=== PATIENT | female | born 1935 | race Caucasian/White ===

== ENCOUNTER → 2018-05-02 08:17 | Outpatient (CLI) | payer MEDICARE, SELFPAY ==
[2018-05-01 13:34] VITALS: BMI 26.9
[2018-05-02 09:28] LABS: Absolute Lymphocyte Count 1.47 X10^3/ul (0.83-4.51); Absolute Neutrophil Count 1.7 X10^3/uL (2.0-7.7); Basophil# 0.02 X10^3/uL; Basophil% 0.6 % (0-1); Eosinophil# 0.16 X10^3/uL; Eosinophils% 4.5 % (0-5); Hematocrit 45.8 % (37-47); Hemoglobin 14.5 g/dl (12.0-15.0); Lymphocyte # 1.47 X10^3/ul (4.0); Lymphocyte % 41.2 % (19-41); Mean Corp Hgb Conc 31.7 g/gl (32-36); Mean Corpuscular Hgb 30.7 pg (27.0-32.0); Mean Platelet Vol. 9.1 fl (6.2-12.0); Monocyte# 0.26 X10^3/uL; Monocyte% 7.3 % (0-10); Neutrophil # 1.66 X10^3/uL (2.7-7.7); Neutrophil % 46.4 % (47-70); Platelet Count 218 K/mm3 (150-450); RBC Distribution Width CV 13.8 % (11.6-14.6); RBC Distribution Width SD 49.5 fl (35.1-43.9); Red Blood Count 4.72 M/mm3 (4.2-5.4); White Blood Count 3.6 K/mm3 (4.4-11.0)
[2018-05-02 09:29] LABS: POSITIVE COUNT NO; POSITIVE DIFFERENTIAL NO; POSITIVE MORPHOLOGY NO
[2018-05-02 09:59] LABS: ALB/GLOB Ratio 1.2 RATIO (0.9-2.4); AST(SGOT) 21 U/L (15-37); Alanine Aminotransfer ALT/SGPT 21 U/L (13-56); Albumin, Serum 3.9 g/dL (3.2-5.0); Alkaline Phosphatase 81 U/L (45-117); Anion Gap 2 (5-15); BUN 12 mg/dL (7-18); BUN/Creat Ratio 17.5 RATIO (10-20); Calcium,Total 9.3 mg/dL (8.5-10.1); Chloride 106 mmol/L (98-107); Creatinine, Serum 0.69 mg/dL (0.55-1.02); EST Glomerular Filtration Rate 87 mL/min (>60); Est Glom Filt Rate - Afr Amer 105 mL/min (>60); Globulin 3.3 g/dL (2.2-4.2); Glucose 89 mg/dL (74-106); Potassium 4.3 mmol/L (3.5-5.1); Protein, Total 7.2 g/dL (6.4-8.2); Sodium Level 137 mmol/L (136-145)
== END ==
PROVIDERS: Family Provider Internal Medicine; PCP Internal Medicine; Referring Provider Internal Medicine; Visit Provider Internal Medicine
DX: M85.80 Other specified disorders of bone density and structure, unspecified site (principal)
CPT/HCPCS: 36415; 80053; 85025

== ENCOUNTER → 2018-05-11 14:35 | Outpatient (CLI) | payer MEDICARE, SELFPAY ==
[2018-05-01 13:34] VITALS: BMI 26.9
--- NOTE | 2018-05-11 14:59 | BD_ITS ---
STUDY: DUAL ENERGY X-RAY ABSORPTIOMETRY / DXA REASON FOR EXAM: Female, 83 years old. The patient is postmenopausal. Loss of height. TECHNIQUE: Bone Mineral Density (BMD) measurements of lumbar spine and bilateral hips were obtained. COMPARISON: None. FINDINGS: Lumbar Spine (L1-L4): g/cm2 (1.177) / T-score (0.1) / Z-score (2.0) Findings are suggestive of normal bone density with a low fracture risk. Increased thoracic kyphosis. Left Femur Total: g/cm2 (0.742) / T-score (-2.1) / Z-score (0.0) Left Femoral Neck: g/cm2 (0.812) / T-score (-1.6) / Z-score (0.6) Right Femur Total: g/cm2 (0.684) / T-score (-2.6) / Z-score (-0.5) Right Femoral Neck: g/cm2 (0.782) / T-score (-1.8) / Z-score (0.4) BD/Dexa Bone Density Study IMPRESSION: The patient is considered osteoporotic as outlined below according to World Agustin Organization (WHO) criteria with a high fracture risk. Reference Information: The T-score is the number of standard deviations above or below the standard which is normal for young adults at their peak bone mineral density. The World Health Organization (WHO) interprets the T-scores as follows: Above -1 Normal bone density Between -1 and -2.5 Osteopenia Equal to / or below -2.5 Osteoporosis As a practical clinical guideline, osteopenia may be graded as follows: Mild -1 through -1.5 Moderate -1.6 through -2.0 Severe -2.1 through -2.4 The Z-score is the number of standard deviations above or below age-matched controls. A Z-score of less than -1.5 would be considered abnormal. References: 1. NIH Osteoporosis and Related Bone Diseases http://www.osteo.org 2. International Society for Clinical Densitometry http://www.iscd.org 3. National Osteoporosis Foundation http://www.nof.org Electronically Signed: Percy Lugo, at 15:26 EDT , Service support ,
== END ==
PROVIDERS: Family Provider Internal Medicine; PCP Internal Medicine; Referring Provider Internal Medicine; Visit Provider Internal Medicine
DX: M85.80 Other specified disorders of bone density and structure, unspecified site (principal); Z78.0 Asymptomatic menopausal state
CPT/HCPCS: 77080

== ENCOUNTER 2018-05-13 12:03 | Emergency (ER) | payer MEDICARE, SELFPAY ==
[2018-05-01 13:34] VITALS: BMI 26.9
[2018-05-13 12:04] VITALS: BP 125/69; PULSE 65; RESP 18; TEMP 36.4; O2SAT 98; BMI 27.8
--- NOTE | 2018-05-13 12:30 | ED.VISSUMM ---
- ER Visit Summary Date of Service: 05/13/18 Chief Complaint: Left elbow injury History of Present Illness: The patient is a 83 F who caught her heel in the basement steps and fell down the last couple steps, striking her left elbow. She denies striking her head or loss of consciousness. She was able to get up and ambulate to the phone to call 911. Her only complaint is pain to the left elbow and a contusion to her left hip. Patient denies taking anticoagulants. Physical Examination: Vital signs unremarkable. Patient sitting upright in bed no acute distress. Head neck examination reveals no external sign of trauma. No C-spine tenderness. Heart is regular rate and rhythm. Lungs sounds are clear. Abdomen is soft nontender. Left upper extremity examination reveals focal tenderness of the olecranon process. She has slight decreased range of motion secondary to pain. She has no tenderness at the shoulder or wrist. She has strong distal pulses and normal sensation. Test Results: Left elbow x-rays reveal transverse fracture of the olecranon. Emergency Department Course and Treatment: Patient declined any pain medication while here. X-rays were read discussed with Dr. Looney. Patient is to be splinted in flexion and will follow up in the office. Patient is placed in a long-arm plus sugar tong splint. Following splint application she has good cap refill distally and can wiggle fingers. She will be written for pain medication at home if needed. Treatment Plan: [] Disposition: Discharge Impression: Mechanical fall with left olecranon fracture This note was generated with [employer] dictation software. It may contain incorrect words, spelling, and punctuation that were not noted in review of the chart prior to signing ED Disposition - Plan for ED Patient: Referrals: Abhishek Foy MD [Primary Care Provider] -
--- NOTE | 2018-05-13 12:47 | RAD_ITS ---
STUDY: X-RAY - LEFT ELBOW REASON FOR EXAM: Female, 83 years old. Fall, pain TECHNIQUE: 3 view(s) of the elbow. COMPARISON: None. FINDINGS: Transverse fracture of the olecranon is identified with approximately 17 mm of displacement. There is moderate degree of comminution/fragmentation. Normal radiocapitellar and ulnotrochlear articulations. Posterior soft tissue swelling noted. RAD/Elbow min 3 Views IMPRESSION: Posterior ulna/olecranon fracture, as above. Electronically Signed: Hong Salazar MD at 13:01 EDT , Service support ,
--- NOTE | 2018-05-13 13:58 | DCINST.ED_ITS ---
ED Disposition - Plan for ED Patient: Disposition: Home or Assisted Living Instructions: ED Fx Elbow Prescriptions: Hydrocodone Bitart/Apap 5-325 [Pattison 5MG-325MG] 1 tablet PO Q6H PRN PRN 3 Days #10 tablet PRN Reason: Pain Referrals: Holger Looney DO [STAFF PHYSICIAN] - 5-7 Days
[2018-05-13 15:15] VITALS: BP 123/72; PULSE 70; RESP 18; O2SAT 96
--- NOTE | 2018-05-14 14:40 | CM.ED ---
SOCIAL WORK NOTE REFERRAL FROM BEDSIDE RN AND PHYSICIAN FROM 05/13. PT IS AN 83 Y/O WOMAN THAT LIVES ALONE AND WAS FOUND TO HAVE A BROKEN L ELBOW WHILE IN THE ED YESTERDAY. PLACED CALL TO PT AND EDUCATED TO SERVICES. AT THIS TIME THE PT THINKS SHE CAN MANAGE AT HOME WITH HHC. STATES THAT SHE LONG-TERM CARE INSURANCE AND IT COVERS HHC. INFORM THAT THIS [employer] YACHT IS NOT FAMILIAR ENOUGH WITH LONG-TERM CARE INSURANCE TO KNOW THE COVERAGE, BUT THAT [facility] CAN RUN HER INSURANCE AND CONTACT HER WITH WHAT IS COVERED AND WHAT THE APPROXIMATE COST OF SERVICES WOULD BE. UNDERSTANDING EXPRESSED AND PT AGREEABLE TO [facility]. PRIMARY INSURANCE: [employer] LONG-TERM CARE INSURANCE: [employer] LIFE INSURANCE POLICY # - [id number] PHONE NUMBER - [phone] REFERRAL FOR HHC FAXED AND LEFT VM FOR HAIDER WITH HHC TO F/U WITH PT REGARDING PAYMENT COVERAGE. Lisa Rose, SUPPLY CHAIN BUSINESS ANALYST, METAL DOOR ASSEMBLER
== END 2018-05-13 15:16 | disposition home or self-care (01) ==
PROVIDERS: Emergency Provider Emergency Medicine; Family Provider Internal Medicine; PCP Internal Medicine
DX: S52.022A Displaced fracture of olecranon process without intraarticular extension of left ulna, initial encounter for closed fracture (principal); W10.8XXA Fall (on) (from) other stairs and steps, initial encounter; Y93.9 Activity, unspecified; Y92.9 Unspecified place or not applicable
CPT/HCPCS: 29105; 73080; 99284

== ENCOUNTER → 2019-05-08 13:44 | Outpatient (CLI) | payer MEDICARE, SELFPAY ==
[2019-05-08 13:01] VITALS: BMI 27.8
[2019-05-08 15:07] LABS: Absolute Lymphocyte Count 1.24 X10^3/uL (0.83-4.51); Absolute Neutrophil Count 2.2 X10^3/uL (2.0-7.7); Basophil# 0.03 X10^3/uL; Basophil% 0.8 % (0-1); Eosinophil# 0.15 X10^3/uL; Eosinophils% 3.8 % (0-5); Hematocrit 43.3 % (37-47); Hemoglobin 14.6 g/dL (12.0-15.0); Lymphocyte # 1.24 X10^3/ul (4.0); Mean Corp Hgb Conc 33.7 g/dL (32-36); Mean Corpuscular Hgb 32.4 pg (27.0-32.0); Mean Corpuscular Volume 96.2 fL (81-99); NRBC Flagged by Analyzer 0 % (0-5); Neutrophil # 2.17 X10^3/uL (2.7-7.7); Neutrophil % 54.1 % (47-70); Platelet Count 245 K/mm3 (150-450); RBC Distribution Width CV 13.3 % (11.6-14.6); RBC Distribution Width SD 47.7 fl (35.1-43.9)
[2019-05-08 15:18] LABS: ALB/GLOB Ratio 1.1 RATIO (0.9-2.4); AST(SGOT) 18 U/L (15-37); Alanine Aminotransfer ALT/SGPT 24 U/L (13-56); Albumin, Serum 3.6 g/dL (3.2-5.0); Alkaline Phosphatase 63 U/L (45-117); Anion Gap 8 (5-15); BUN 10 mg/dL (7-18); BUN/Creat Ratio 15.1 RATIO (10-20); Calcium,Total 9.7 mg/dL (8.5-10.1); Chloride 101 mmol/L (98-107); Creatinine, Serum 0.66 mg/dL (0.55-1.02); EST Glomerular Filtration Rate 91 mL/min (>60); Est Glom Filt Rate - Afr Amer 110 mL/min (>60); Globulin 3.3 g/dL (2.2-4.2); Glucose 104 mg/dL (74-106); Potassium 4.1 mmol/L (3.5-5.1); Protein, Total 6.9 g/dL (6.4-8.2); Sodium Level 135 mmol/L (136-145)
[2019-05-08 15:20] LABS: Vitamin D,25 Hydroxy 46.4 ng/mL
== END ==
PROVIDERS: PCP Internal Medicine; Visit Provider Internal Medicine
DX: S42.409A Unspecified fracture of lower end of unspecified humerus, initial encounter for closed fracture (principal); M81.0 Age-related osteoporosis without current pathological fracture
CPT/HCPCS: 36415; 80053; 82306; 85025

== ENCOUNTER → 2019-09-04 14:57 | Outpatient (CLI) | payer MEDICARE, SELFPAY ==
[2019-09-04 14:53] VITALS: BMI 27.8
--- NOTE | 2019-09-04 14:58 | RAD_ITS ---
STUDY: X-RAY - RIGHT WRIST REASON FOR EXAM: Pain. TECHNIQUE: 3 view(s) of the wrist were obtained. COMPARISON: None. FINDINGS: There is osteopenia. Normal visualized distal radius and ulna. Normal radiocarpal articulation. There is joint space narrowing of the distal radioulnar articulation. There is a cyst in the mid scaphoid. Otherwise, unremarkable carpal bones. Normal carpal articulations. Normal carpometacarpal articulation of the thumb. Normal second through fifth carpometacarpal articulations. Normal visualized metacarpal bones. There is chondrocalcinosis in the triangular fibrocartilage. 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 Electronically Signed: Abdoulaye Heaton MD at 8:25 EDT Tel , Service support ,
== END ==
PROVIDERS: PCP Internal Medicine; Referring Provider Orthopaedic Surgery; Visit Provider Orthopaedic Surgery
DX: M25.531 Pain in right wrist (principal)
CPT/HCPCS: 73110

== ENCOUNTER 2019-09-28 08:58 | Day surgery (SDC) | payer MEDICARE, SELFPAY ==
--- NOTE | 2019-09-04 03:41 | HP_ITS ---
I have re-examined the patient. There are no clinical changes since date of exam. Intake Vital Signs 09/04/19 BMI 27.8 Intake Visit Reasons: RIGHT WRIST Chief Complaint: right wrist Accompanied by: self Is patient in pain?: Yes Pain scale (1-10): 7 Allergies No Known Allergies Allergy (Verified 05/08/19 12:58) Medications calcium carbonate 600 mg(1,500 mg)-vitamin D3 800 unit chewable tablet 1 tab PO DAILY tab 05/01/18 [History Confirmed 09/04/19] multivitamin 1 cap PO DAILY 05/01/18 [History Confirmed 09/04/19] alendronate 70 mg tablet 70 mg PO QWEEK #14 tab 04/11/19 [Rx Confirmed 09/04/19] PFSH Social History (Updated 09/04/19 @ 15:[address] Mary Reza, ) Smoking Status: Never smoker Tobacco: How many years used: 15 alcohol intake: current alcohol intake frequency: holidays/special occasions only Alcohol type: wine substance use type: does not use what type of physical activity do you participate in: aerobics, weight training frequency: 1-2 times per week HPI RIGHT WRIST: Surgical H&P: Yes Details: Parts of this documentation were recorded by a scribe, this documentation accurately reflects the service provided and the decisions made by me, Dr. Mary Reza, 09/04/19 [id number]. STERLING VALDES is a 84 year old F NEW patient here today for right wrist. Referred by Dr. Foy for positive right upper extremity EMG. States that her pain keeps her up at night. Her EMG showed Moderate to severe carpal tunnel on the right and mild on the left side. States she has numbness and tingling of the thumb index and middle finger. She has been trying night splinting for 3 years now which has been helpful. Denies any x-rays. Denies any carpal tunnel injections. She does read a lot and this affects the way she olds the book. ROS Const Reports weakness Musc Reports joint pain, Denies joint swelling, Reports numbness, Reports radiating pain into limb, Reports stiffness, Reports tingling Skin/Breast Denies redness, Denies lesions, Denies itching, Denies rash, Denies skin swelling Neuro Yes numbness, Yes tingling, Yes weakness Ortho Exam Right Wrist/Hand Skin/Wound: No Swelling, No Ecchymosis, Yes capillary refill normal Right Wrist: Yes ROM-Extension 0-60, ROM-Flexion 0-80, ROM-Pronation 0-80, ROM- Supination 0-90 and Thenar Atrophy Motor: EPL: 5, FDP-2: 4, 1st Dorsal Interosseous: 5, APB: 4 Sensation: Radial: I, Ulnar: I, Median: D Left Wrist/Hand Skin/Wound: No Swelling, No Ecchymosis, No erythema Left Wrist: Yes ROM-Extension 0-60, Yes ROM-Flexion 0-80, Yes ROM-Pronation 0-80 and Yes ROM-Supination 0-90; no Thenar Atrophy Motor: EPL: 5, FDP-2: 5, 1st Dorsal Interosseous: 5, APB: 5 Sensation: Radial: I, Ulnar: I, Median: D Spine SPINE TESTING CERVICAL THORACIC LUMBAR Musculoskeletal Strength 0=absent - 5=normal R First Dorsal Interossei (C8): 4, L First Dorsal Interossei (C8): 4 Assessment & Plan Problems 1. Bilateral carpal tunnel syndrome G56.03 Plan Obtained X-rays of patient's right wrist. Personally reviewed x-rays. There is no obvious fracture, dislocation, or lucency noted. Personally reviewed patients EMG of the BL upper extremities. Patient educated that she has moderate to severe carpal tunnel syndrome of the right wrist and mild carpal tunnel of the left wrist. Treatment options include do nothing or night bracing or carpal tunnel injections or carpal tunnel release. Recommended right carpal tunnel release of the right wrist and a steroid injection of the left carpal tunnel injection. Educated that she will be in a splint/dressing for 2 weeks post op then she can progress as tolerated. Reviewed the pre-operative plans with the patient. Risks and benefits of the procedure were fully explained, including but not limited to infection, neurovascular injury, continued pain, arthritis, stiffness, need for further surgery, re-injury, DVT, PE, general risks of anesthesia, and loss of limb or life. The patient understands all the risks and does wish to proceed with written consent. Follow up 2 weeks post op or sooner if pain, swelling, numbness or associated symptoms, or concerns develop. All questions answered. Patient in agreement of plan. Orders Orders: Wrist min 3 Views Today M25.531 We discussed the current risk associated COVID-19. While it is understood that there is a community spread of COVID 19 the risk of clarissa COVID-19 while at [facility] is very low, however, the risk cannot be completely mitigated because of the community spread of the disease. We discussed in detail the risk of exposure to and or potential harm posed by the COVID-19 virus with having a surgery/procedure at this time versus the risk of delaying the surgery/procedure. Is not possible to know either the risk of delaying the surgery procedure or chance of getting an infection with perfect accuracy, but a joint decision was made to proceed at this time with a schedule surgery/procedure as indicated on the consent form. Patient was notified that we will need to comply with any screening or testing [facility] wishes to perform or that surgery may be delayed for any positive results. Coding Level of Care Code 85986 Diagnoses Bilateral carpal tunnel syndrome G56.03 COVID (Procedure Consent) Procedure Criteria Procedure Criteria: Yes Elective The surgeon/proceduralist and patient have discussed in detail the risk of exposure to and/or potential harm posed by the COVID-19 virus with having a surgery/procedure at this time versus the risk of? delaying the surgery/procedure. It is not possible to know either the risk of delaying the surgery or procedure or chance of getting an infection with perfect accuracy, but a joint decision was made between the patient and the surgeon/proceduralist ?to proceed at this time with the scheduled surgery/procedure as indicated on the consent form. 09/04/19 4060 <Electronically signed by Mary lockwood DO> Date _ Mary Reza DO
[2019-09-04 14:53] VITALS: BMI 27.8
[2019-09-28] VITALS (7 sets, daily range): BP systolic 107–126; BP diastolic 62–86; PULSE 68–74; RESP 14–16; TEMP 35.9–36.6; O2SAT 94–100; BMI 27.6
[2019-09-28] MEDS: Lactated Ringers 1,000 ML 100 ML IV (09:59)
--- NOTE | 2019-09-28 10:59 | DCINST_ITS ---
Discharge Diet: No Restrictions - Leave dressing on until seen in postop clinic in 10-14 days for suture removal, keep dressing clean, dry, intact; change dressing if gets wet/dirty, call with concerns Discharge Activity: May Not Drive May shower in (days): 1 Ice area for (Minutes): 20 - Every hour while awake. Weight Bearing Status: Weight bearing as tolerated Keep extremity elevated above heart level: Operative Extremity Call your doctor if your incision/area has: Continuous Slow Oozing, Sudden Increased Bleeding, Increased Pain/ Swelling, Increased Redness, Foul Smelling Discharge Call your doctor if you observe: Fever of 101 or Higher, Coldness, Increased Pain, Numbness or Tingling, Change in Color, Calf discomfort Allergies/Adverse Reactions: Allergies No Known Allergies Allergy (Verified 09/19/19 11:06) Medications to take at Discharge calcium carbonate 600 mg(1,500 mg)-vitamin D3 800 unit chewable tablet 1 tab PO BID tab 05/01/18 multivitamin 1 cap PO DAILY 05/01/18 alendronate 70 mg tablet 70 mg PO QWEEK #14 tab 04/11/19 Cholecalciferol (Vitamin D3) [Vitamin D3] 25 mcg PO DAILY 09/19/19 Acetaminophen/Codeine #3 [Tylenol #3 Tablet] 1 - 2 tablet PO Q6H PRN PRN #30 tablet 09/28/19 The following prescriptions were given: Acetaminophen/Codeine #3 [Tylenol #3 Tablet] 1 - 2 tablet PO Q6H PRN PRN #30 tablet PRN Reason: Pain Transmission Status: Sent to [facility]30 Primary Care Physician: Abhishek Foy MD [Primary Care Provider] - Test Results: Test results from this visit will be discussed in further detail at your follow- up appointment, if applicable. Please Follow Up With: Mary Reza, DO - [phone]
--- NOTE | 2019-09-28 10:59 | PCM.OPRPT ---
Report of Operation Date of Procedure: 09/28/19 Pre-Operative Diagnosis: bilateral carpal tunnel syndrome Post-Operative Diagnosis: same Surgery/Procedure Performed:: right carpal tunnel release, left carpal tunnel injection Type of Anesthesia:: Jina Cross Anesthesiologist: Federico Coelho Estimated Blood Loss (mL): min Fluids Replaced: 400cc Description of Procedure: Preoperative note Patient is a 84 year old patient with nerve conduction study confirming bilateral carpal tunnel syndrome. Patient failed conservative treatment for her carpal tunnel elected proceed with right carpal tunnel release left carpal tunnel injection. Risks benefits and alternatives surgery discussed with patient. Risks including but not limited to blood loss, blood clot, infection, neurovascular injury, failure procedure, loss of life and loss of limb. Patient is aware like proceed with right carpal tunnel release. left carpal tunnel injection. Operative note Patient seen and examined preoperative holding area. right hand was marked. History and physical and consent reviewed. Patient was brought to the operating room placed supine on the operating table. Sign in, anesthesia, antibiotics were administered. right upper extremity was prepped and draped after Jina block was initiated. All bony prominences well-padded SCDs placed on bilateral lower extremities. We marked out our incisions for our carpal tunnel release at the intersection of Rakel's line in the fourth ray flexed. We extended about a centimeter and a half. Timeout was performed. We then checked ensure that the [place] block was working with pickups which it was not so we performed a local block of 10cc 1% lidocaine. We then used a 15 blade to make a skin incision. We then dissected down tenotomy syllable of the transverse carpal ligament. We then used a new 15 blade cut through the transverse carpal ligament down to the level of the median nerve. We then further released the median nerve the combination of the 15 blade and tenotomies. The nerve was grayish in color and adherent to the transverse carpal ligament volarly. We released the transverse carpal ligament distally to the fat pad and then proximally under standard technique. We then palpated to ensure that we released all of the transverse carpal ligament which we did. We irrigated the incision with copious amounts of sterile saline. All bleeders were coagulated. The incision was closed with interrupted 4-0 nylon stitches. Tourniquet was deflated for total working time of 9 minutes. We then moved to the left side/carpal tunnel. under sterile technique, the left wrist/carpal tunnel was injected with 1/2cc kenalog and 1cc bupivicaine. Patient tolerated procedure well there were no complications. Patient transferred to recovery room in stable condition. Postoperative note Hospital pharmacy has prescription Leave dressing clean dry and intact Follow-up in 2 weeks Call with concerns This note was generated with [employer] dictation software. It may contain incorrect words, spelling, and punctuation that were not noted in checking the note before signing
[2019-09-28] MEDS: Cefazolin 2 GM in 0.9% Normal Saline 100 ML IV (11:42)
[2019-09-28] MEDS: Mupirocin Ointment 22gm Tube 1 APPLIC (12:07)
[2019-09-28] MEDS: Triamcinolone Acetonide 40 MG/ML Vial (12:10)
[2019-09-28] MEDS: Bupivacaine 0.25% 30 ML Vial (12:10)
== END 2019-09-28 13:40 | disposition home or self-care (01) ==
LOC: SDC 08:59 → AC 09:00
PROVIDERS: Anesthesiology; PCP Internal Medicine; Referring Provider Orthopaedic Surgery; Visit Provider Orthopaedic Surgery
PROC: (CPT 64721; principal; 2019-09-28 10:15)
DX: G56.03 Carpal tunnel syndrome, bilateral upper limbs (principal); Z11.59 Encounter for screening for other viral diseases; Z87.891 Personal history of nicotine dependence
CPT/HCPCS: 20526; 64721; 87635; 94799; J7120; A4216; U0003

== ENCOUNTER → 2020-05-02 10:36 | Outpatient (CLI) | payer MEDICARE, SELFPAY ==
[2020-05-02 09:56] VITALS: BMI 28.7
[2020-05-02 12:28] LABS: Absolute Lymphocyte Count 1.28 X10^3/uL (0.83-4.51); Absolute Neutrophil Count 2.3 X10^3/uL (2.0-7.7); Basophil# 0.04 X10^3/uL; Eosinophil# 0.14 X10^3/uL; Eosinophils% 3.3 % (0-5); Hematocrit 44.5 % (37-47); Hemoglobin 14.1 g/dL (12.0-15.0); Lymphocyte # 1.28 X10^3/ul (4.0); Lymphocyte % 30.4 % (19-41); Mean Corp Hgb Conc 31.7 g/dL (32-36); Mean Corpuscular Hgb 30.9 pg (27.0-32.0); Mean Corpuscular Volume 97.4 fL (81-99); Mean Platelet Vol. 9.3 fl (6.2-12.0); Monocyte# 0.42 X10^3/uL; NRBC Flagged by Analyzer 0 % (0-5); Neutrophil # 2.32 X10^3/uL (2.7-7.7); Neutrophil % 55.1 % (47-70); Platelet Count 228 K/mm3 (150-450); RBC Distribution Width CV 13.2 % (11.6-14.6); Red Blood Count 4.57 M/mm3 (4.2-5.4); White Blood Count 4.2 K/mm3 (4.4-11.0)
[2020-05-02 12:38] LABS: ALB/GLOB Ratio 1.2 RATIO (0.9-2.4); AST(SGOT) 18 U/L (15-37); Alanine Aminotransfer ALT/SGPT 23 U/L (13-56); Albumin, Serum 3.8 g/dL (3.2-5.0); Alkaline Phosphatase 58 U/L (45-117); Anion Gap 3 (5-15); BUN 11 mg/dL (7-18); BUN/Creat Ratio 14.4 RATIO (10-20); Chloride 101 mmol/L (98-107); Creatinine, Serum 0.76 mg/dL (0.55-1.02); EST Glomerular Filtration Rate 77 mL/min (>60); Est Glom Filt Rate - Afr Amer 93 mL/min (>60); Globulin 3.3 g/dL (2.2-4.2); Glucose 91 mg/dL (74-106); Potassium 4.6 mmol/L (3.5-5.1); Protein, Total 7.1 g/dL (6.4-8.2); Sodium Level 135 mmol/L (136-145)
[2020-05-02 12:41] LABS: Vitamin D,25 Hydroxy 41.8 ng/mL
== END ==
PROVIDERS: PCP Internal Medicine; Referring Provider Internal Medicine; Visit Provider Internal Medicine
DX: S42.409A Unspecified fracture of lower end of unspecified humerus, initial encounter for closed fracture (principal); M81.0 Age-related osteoporosis without current pathological fracture
CPT/HCPCS: 36415; 80053; 82306; 85025

== ENCOUNTER 2021-05-04 10:42 | Outpatient (CLI) | payer MEDICARE, SELFPAY ==
[2021-05-04 12:14] LABS: Absolute Lymphocyte Count 1.17 X10^3/uL (0.83-4.51); Absolute Neutrophil Count 2.5 X10^3/uL (2.0-7.7); Basophil# 0.03 X10^3/uL; Basophil% 0.7 % (0-1); Eosinophil# 0.16 X10^3/uL; Eosinophils% 3.8 % (0-5); Hematocrit 41.8 % (37-47); Hemoglobin 13.6 g/dL (12.0-15.0); Lymphocyte # 1.17 X10^3/ul (0.83-4.51); Lymphocyte % 27.8 % (19-41); Mean Corp Hgb Conc 32.5 g/dL (32-36); Mean Corpuscular Hgb 31.3 pg (27.0-32.0); Mean Corpuscular Volume 96.1 fL (81-99); Mean Platelet Vol. 9.3 fl (6.2-12.0); Monocyte# 0.33 X10^3/uL; Monocyte% 7.8 % (0-10); NRBC Flagged by Analyzer 0 % (0-5); Neutrophil % 59.4 % (47-70); Platelet Count 207 K/mm3 (150-450); RBC Distribution Width CV 13.5 % (11.6-14.6); RBC Distribution Width SD 48.4 fl (35.1-43.9); Red Blood Count 4.35 M/mm3 (4.2-5.4); White Blood Count 4.2 K/mm3 (4.4-11.0)
[2021-05-04 12:20] LABS: ALB/GLOB Ratio 1.3 RATIO (0.9-2.4); AST(SGOT) 19 U/L (15-37); Alanine Aminotransfer ALT/SGPT 23 U/L (13-56); Albumin, Serum 3.8 g/dL (3.2-5.0); Alkaline Phosphatase 55 U/L (45-117); Anion Gap 4 (5-15); BUN 13 mg/dL (7-18); BUN/Creat Ratio 17.8 RATIO (10-20); Calcium,Total 9.6 mg/dL (8.5-10.1); Chloride 102 mmol/L (98-107); Creatinine, Serum 0.73 mg/dL (0.55-1.02); EST Glomerular Filtration Rate 81 mL/min (>60); Est Glom Filt Rate - Afr Amer 97 mL/min (>60); Glucose 141 mg/dL (74-106); Potassium 4.6 mmol/L (3.5-5.1); Protein, Total 6.8 g/dL (6.4-8.2); Sodium Level 136 mmol/L (136-145)
[2021-05-04 12:42] LABS: Vitamin D,25 Hydroxy 45.8 ng/mL
[2021-05-04 14:43] LABS: Hemoglobin A1c 5.9 % (3.8-5.6)
== END 2021-05-04 23:59 | disposition home or self-care (01) ==
LOC: BIMLAB 10:43
PROVIDERS: PCP Internal Medicine; Referring Provider Internal Medicine; Visit Provider Internal Medicine
DX: G56.00 Carpal tunnel syndrome, unspecified upper limb (principal); M81.0 Age-related osteoporosis without current pathological fracture; R73.9 Hyperglycemia, unspecified
CPT/HCPCS: 36415; 80053; 82306; 83036; 85025

== ENCOUNTER 2021-05-07 14:02 | Outpatient (CLI) | payer MEDICARE, SELFPAY ==
--- NOTE | 2021-05-07 14:10 | BD_ITS ---
STUDY: DUAL ENERGY X-RAY ABSORPTIOMETRY / DXA REASON FOR EXAM: Female, 86 years old. Osteoporosis TECHNIQUE: Bone Mineral Density (BMD) measurements of lumbar spine and bilateral hips were obtained. COMPARISON: Comparison is made with prior study dated 05/11/2018. FINDINGS: Lumbar Spine (L1-L4): g/cm2 (1.238) / T-score (1.7) / Z-score (4.6) Findings are suggestive of normal bone density with a low fracture risk. Left Femur Total: g/cm2 (0.719) / T-score (-1.8) / Z-score (0.5) Left Femoral Neck: g/cm2 (0.686) / T-score (-1.5) / Z-score (1.1) Right Femur Total: g/cm2 (0.727) / T-score (-1.8) / Z-score (0.6) Right Femoral Neck: g/cm2 (0.774) / T-score (-0.7) / Z-score (1.8) The T-Scores on the most recent prior examination were: Lumbar Spine (L1-L4): There has been improvement of bone density since the previous examination. Left Femur Total: which represents an improvement of 5.2%. Right Femur Total: which represents an improvement of 15.9%. BD/Dexa Bone Density Study IMPRESSION: The patient is considered osteopenic as outlined below according to World Agustin Organization (WHO) criteria with a moderate fracture risk. There has been improvement of bone density since the previous examination. Reference Information: The T-score is the number of standard deviations above or below the standard which is normal for young adults at their peak bone mineral density. The World Health Organization (WHO) interprets the T-scores as follows: Above -1 Normal bone density Between -1 and -2.5 Osteopenia Equal to / or below -2.5 Osteoporosis As a practical clinical guideline, osteopenia may be graded as follows: Mild -1 through -1.5 Moderate -1.6 through -2.0 Severe -2.1 through -2.4 The Z-score is the number of standard deviations above or below age-matched controls. A Z-score of less than -1.5 would be considered abnormal. References: 1. NIH Osteoporosis and Related Bone Diseases www osteo.org 2. International Society for Clinical Densitometry www iscd.org 3. National Osteoporosis Foundation www nof.org Electronically Signed: Percy Lugo MD at 8:53 EDT ,
== END 2021-05-07 23:59 | disposition home or self-care (01) ==
LOC: OPBD 14:03
PROVIDERS: PCP Internal Medicine; Visit Provider Internal Medicine
DX: M81.0 Age-related osteoporosis without current pathological fracture (principal)
CPT/HCPCS: 77080

== ENCOUNTER → 2022-05-03 | Outpatient (CLI) | payer MEDICARE, SELFPAY ==
[2022-05-03 12:05] LABS: Absolute Lymphocyte Count 1.07 X10^3/uL (0.83-4.51); Absolute Neutrophil Count 2.6 X10^3/uL (2.0-7.7); Basophil# 0.04 X10^3/uL; Eosinophils% 2.4 % (0-5); Hematocrit 44.7 % (37-47); Hemoglobin 14.2 g/dL (12.0-15.0); Lymphocyte # 1.07 X10^3/ul (0.83-4.51); Mean Corp Hgb Conc 31.8 g/dL (32-36); Mean Corpuscular Hgb 31.2 pg (27.0-32.0); Mean Corpuscular Volume 98.2 fL (81-99); Mean Platelet Vol. 9.4 fl (6.2-12.0); Monocyte# 0.35 X10^3/uL; Monocyte% 8.5 % (0-10); NRBC Flagged by Analyzer 0 % (0-5); Neutrophil # 2.55 X10^3/uL (2.7-7.7); Neutrophil % 61.9 % (47-70); Platelet Count 218 K/mm3 (150-450); RBC Distribution Width CV 13.9 % (11.6-14.6); RBC Distribution Width SD 51.2 fl (35.1-43.9); Red Blood Count 4.55 M/mm3 (4.2-5.4); White Blood Count 4.1 K/mm3 (4.4-11.0)
[2022-05-03 12:16] LABS: Vitamin D,25 Hydroxy 50.2 ng/mL
[2022-05-03 12:26] LABS: ALB/GLOB Ratio 1.1 RATIO (0.9-2.4); AST(SGOT) 17 U/L (15-37); Alanine Aminotransfer ALT/SGPT 24 U/L (13-56); Albumin, Serum 3.6 g/dL (3.2-5.0); Alkaline Phosphatase 54 U/L (45-117); Anion Gap 6 (5-15); BUN 11 mg/dL (7-18); Calcium,Total 10.2 mg/dL (8.5-10.1); Chloride 101 mmol/L (98-107); Creatinine, Serum 0.73 mg/dL (0.55-1.02); EST Glomerular Filtration Rate 80 mL/min (>60); Est Glom Filt Rate - Afr Amer 97 mL/min (>60); Globulin 3.2 g/dL (2.2-4.2); Glucose 111 mg/dL (74-106); Protein, Total 6.8 g/dL (6.4-8.2); Sodium Level 137 mmol/L (136-145)
== END | disposition home or self-care (01) ==
LOC: BIMLAB 09:28
PROVIDERS: PCP Internal Medicine; Referring Provider Internal Medicine; Visit Provider Internal Medicine
DX: S42.409A Unspecified fracture of lower end of unspecified humerus, initial encounter for closed fracture (principal); M81.0 Age-related osteoporosis without current pathological fracture
CPT/HCPCS: 36415; 80053; 82306; 85025

== ENCOUNTER 2022-08-31 13:30 | Outpatient (RCR) | payer MEDICARE, SELFPAY ==
--- NOTE | 2022-08-09 14:57 | HP.PTEVAL_ITS ---
Patient's Visit Information STERLING VALDES is a 87 year old F referred to Physical Therapy by KELSI Espinoza with a diagnosis of SI joint dysfunction L side, LB strain.. Date of Evaluation: 08/09/22 Physical Therapist: Surendra Cota, DPT, OCS, CSCS - Visit Plan Frequency: 2x /Week Duration: 4-6 Weeks Plan: 2x/week for 4-6 weeks starting in pool for ec balance, LB ROM, general strength adn progression of HEP. - Subjective I've got some. Spent 10 days in [place] and 7 days [place] in last month. Endo of June before [place], she lost her balance and fell and got up and went to [facility]. X rays of L hip as she fell on her behind. Was really sore the next day in L hip. Got prednisone 5 day and tylenol and got along [place] in [place]. used cane for stability. Hurting and stiff upon arising every morning. Went to [place] after 5 more days of prednisone to get through [place] adn did well there despite a lot of walking. used shuttle quite a bit. Soreness in L hip is the biggest problem. Sent to [place] [facility] and has scoliosis and not sciatica and OA in body. Needs PT. Currently life is slower because of not sure when shooting pain in L hip will come on. Uses cane and it is a God send,. No regular exercises prior to fall. Not employed. Hobbies are reading and travelling. Very involved in restoration. - Pain L hip Pain Intensity (Out of 10): 0 Pain Intensity Range: 0, 2 - Objective Walks with cane I. can walk without cane but hurts more L hip and SI area. trasnfers slow but I chair and bed. steps I with one rail. reflexes 1/3 patella and achilles. Sensation WNL LE to gross light touch. strength in hips is 3+ abd and flexion and ext, knee flex and ext 4- and ankles 4- B. Some tender ness L SI area. AROM hip rotation R hip 4 ir and 40 er, L hip 7 ir and 45 er. flexion 90 B. quads max tight B, HS min tight. knee and ankle AROM WFL but tightness in gastroc. Confidence with balance is poor but can stand with ec, feels poor. - Balance/Special Test Scores Functional Gait Assessment Score: 22 % Disability: 26.6700 Oswestry Low Back Score: 17 - Goals Goal 1:: I appropr HEP for back ROm, general strength and quad stretching and balance ec. Goal Time Frame: 4-6 Weeks Goal 2:: No pain with ambulation Goal Time Frame: 4-6 Weeks Goal 3:: Pt feel 75% better overall. Goal Time Frame: 4-6 Weeks Goal 4:: oswestry score 10 or less. Goal Time Frame: 4-6 Weeks - Rehabilitation Potential Physical Therapy Diagnosis: imbalance and LBP sedentary. Rehabilitation Potential: Good - Anticipated Interventions Patient/Client Instruction: Educate patient on: Condition, Plan of Care For the Purpose of:: To increase tolerance to activity/condition/position, To improve ability of physical actions for home/community/work/leisure, To improve gait and locomotor functions Therapeutic Exercise to Include: Strength training, Postural training, Fl exibilty training, In an aquatic setting, Dynamic Lumbar Stabilization For the Purpose of:: To decrease pain, To increase ROM, To improve nutrient delivery to tissue, To improve muscle performance and motor function, To increase tolerance to activity/condition/position, To improve ability of physical actions for home/community/work/leisure, To improve gait and locomotor functions Thank you for the opportunity to evaluate your patient. For Medicare and Medicare HMO plans, please review the plan of care and approve it. It will need to be FAXED BACK to us at [phone] for Medicare purposes. For Medicare only, by signing this I certify the plan of care. Please let me know if there are questions or concerns regarding this plan of care. Physician Signature: Date:
--- NOTE | 2022-08-31 13:53 | HP.PTDCSUM_ITS ---
Discharge Summary D/C summary: It has been my pleasure to treat STERLING VALDES referred by KELSI Espinoza, with the diagnosis of SI joint dysfunction L side, LB strain. for a total of 8 visit(s). Discharge Date: 08/31/22 Please see the following information for a summary of their discharge status. Subjective Subjective: Not a lot better overall. Pain comes back after out of the water. I would be in trouble without pain meds. Agony when she gets up still. L poste rior hip hurts with WB consistently. Pain meds really help. Had bad pain this am upon awakening. 09/23 . Not walking like she would for fitness. Using cane to get around. Sleep is not a problem. Nothing scheduled. Pain L hip: Pain Intensity (Out of 10): 0 Overall Improvement % Improvement: 0 Objective Objective/Function: Walks with cane appropriately today and short steps but no antalgia until cane taken away. She says it is worse when she is not on pain meds. PROM L hip is WFL although pt holds it very tight and has hard time relaxing, no pain at end ranges today . Strength is 4 in ankles, 4 in knees and 4- in hips without much pain. Gets 2 twinges of bad pain walking today that linger in posterior L hip, this is frustrating for her. Overall not feeling any better and wants to check with doctor for next step as she feels something else is going on in her hip. Goals Goal 1:: I appropr HEP for back ROm, general strength and quad stretching and balance ec. Goal Progress: noncompliant Goal 2:: No pain with ambulation Goal Progress: Not Progressing Goal 3:: Pt feel 75% better overall. Goal Progress: Not Progressing Goal 4:: oswestry score 10 or less. Goal Progress: Not Progressing Plan Plan: d/c, pt to schedule with doctor for next medical step D/C Information Discharge Comments: Pt to schedule with doctor office for next step due to lack of improvement. d/c sentence: If there are questions or concerns regarding this patient's physical therapy, please feel free to call me at [phone]. Thank you for the referral of this patient. Sincerely, Surendra Cota, DPT, OCS, CSCS Balance/Gait/Functional tests Balance/Special Test Scores Functional Gait Assessment Score: 22 % Disability: 26.6700 Oswestry Low Back Score: 27
== END 2022-08-31 19:00 | disposition home or self-care (01) ==
LOC: PT 13:30
PROVIDERS: PCP Internal Medicine; Referring Provider Physician Assistant; Visit Provider Physician Assistant
DX: M53.3 Sacrococcygeal disorders, not elsewhere classified (principal); S39.012D Strain of muscle, fascia and tendon of lower back, subsequent encounter
CPT/HCPCS: 97113; 97161; 97164

== ENCOUNTER → 2022-10-02 | Outpatient (CLI) | payer MEDICARE, SELFPAY ==
--- NOTE | 2022-10-02 08:01 | MRI_ITS ---
EXAM: MR PELVIS WITHOUT INTRAVENOUS CONTRAST CLINICAL INDICATION: back pain, hip pain, LT side worse, fell 07/07/22, att si joints TECHNIQUE: Multiplanar and multisequence MR images of the pelvis without intravenous contrast. COMPARISON: Left hip and pelvis x-ray 09/13/2022. FINDINGS: APPENDIX: No evidence of acute appendicitis. INTRAPERITONEAL SPACE: Unremarkable. No ascites or other fluid collection. BLADDER: Unremarkable. OVARIES: Unremarkable as visualized. No mass or complex cyst. UTERUS/CERVIX: Unremarkable. No mass. Endometrial stripe is normal in thickness and appearance. BONES/JOINTS: Small amount of fluid adjacent to the partially visualized right ischial tuberosity. 5 mm anterior subluxation of L3 on L4 and 9 mm anterior subluxation of L4 on L5. This is associated with degenerative disc disease with generalized disc bulging, ligamentum flavum thickening, and facet arthropathy causes severe spinal stenosis. Moderate to severe spinal stenosis at L2-L3 due to generalized disc bulge and ligamentum flavum thickening. Moderate levoscoliosis of the lumbar spine. No suspicious lytic or blastic abnormality. SOFT TISSUES: Unremarkable. No pelvic wall hernia. LYMPH NODES: Unremarkable. No enlarged lymph nodes. MRI/Pelvis (Routine) IMPRESSION: 1. Small amount of fluid adjacent to the partially visualized right ischial tuberosity. This may be due to a right hamstring strain. 2. Normal sacrum and sacroiliac joints. 3. Severe spinal stenosis L3-L4 and L4-L5 due to anterior subluxations, generalized disc bulging, ligamentum flavum thickening and facet arthropathy. 4. Moderate to severe spinal stenosis L3-L4 due to generalized disc bulge, ligamentum flavum thickening, and facet arthropathy. 5. Moderate levoscoliosis of the lumbar spine. Electronically Signed: Holger Dubon MD at 4:42 EDT ,
== END | disposition home or self-care (01) ==
LOC: MRI 07:59
PROVIDERS: PCP Internal Medicine; Referring Provider Orthopaedic Surgery; Visit Provider Orthopaedic Surgery
DX: S70.02XA Contusion of left hip, initial encounter (principal)
CPT/HCPCS: 72195

== ENCOUNTER 2022-12-09 15:00 | Outpatient (RCR) | payer MEDICARE, SELFPAY ==
--- NOTE | 2022-11-08 16:07 | HP.PTEVAL_ITS ---
Patient's Visit Information Visit Information Visit Information: STERLING VALDES is a 87 year old F referred to Physical Therapy by Dr. Luis Young DO with a diagnosis of lumbar spinal stenosis and DDD. Date of Evaluation: 11/08/22 Physical Therapist: Surendra Cota, DPT, OCS, CSCS Visit Plan Frequency: 2x /Week Duration: 4-6 Weeks Plan: 2x/week for 4-6 weeks for 1. rollotu and stretch B psoas and quads and teach for HEP 2. LB ROM mat and progress to HEOP 3. core strength mat to stand with NS emphasis and progress to HEP MH as needed. Pt did not want aquatic therapy as she has been through it before. Subjective Subjective: Has had back pain and w2ater therapy previously. 07/07/22 fell and got worse back pain. Got diagnosed by MRI with DDD and stenosis. Lost balance at 4:30 am and fell , balance had been deteriorating. that was first fall and last fall. Pain since then is bad and L hip and LB. Starts L hip side pain. [facility] and x rays of hip and they were negative. Had prednisone at the time and used a cane to get through a trip to [place]. Had another trip shortly after and another script for prednisone and avoided walking and did Ok. That was late July. \Since then has been dealing with having to get a new car. Had to do one thing at a time. has had the pain since that time and it is not improving. Had a little water therapy at the time and felt good in the water. No numbness or tingling or weakness noted. Sleep: is Ok, normal for her. Basic ADLs are getting done, has not run vaccuum in long time. Lives alone, no animals. Has steps to basement. Has clothes chute, avoids bending, can carry them up the steps. Pain L hip and LB: Pain Intensity (Out of 10): 7 Pain Intensity Range: 0 and 7 Comment: 7 walking too far. Objective Objective: Posture is forward head and kyphotic T/S, Has some R deviation in stance seemingly due to pain with straightening out. Pain with walking back to PT 5/10, much better when I give her walker, Faster walk also. Typically uses cane but forgot it today. Lumbar AROM ext max limited and pianful L, L Sb max limited and L pain, R SB and flexion are slow but only min limitations. max tightness B quads and psoas and HS at -50 90/90 test, gastrocs to 0 DF AROM. ankle and knee aROM WFL, hip AROM ext to 5 degrees, flexion to 100, rotation ext 35 B and IR 10 B without pain. reflexes 2/3 patella and achilles Sensation LE WNL to gross light touch B. Much lessd pain in supine and standi with posterior pelvic tilt, also feel much better with wh walker. Balance/Special Test Scores Oswestry Low Back Score: 26 Goals Goal 1:: I apporopriate HEP for NS strength, LB ROM and anterior quad /psoas stretching Goal Time Frame: 2-4 Weeks Goal 2:: Pain 0-2/10 at most and 60%4 improved overall. Goal Time Frame: 4-6 Weeks Goal 3:: Walk into and out of PT without pain consistently Goal Time Frame: 4-6 Weeks Goal 4:: oswestry score 8 or better Goal Time Frame: 4-6 Weeks Rehabilitation Potential Physical Therapy Diagnosis: spinal stenosis causing pain with ambulation and difficulty with some ADLs and quality of life. Rehabilitation Potential: Fair Anticipated Interventions Patient/Client Instruction: Educate patient on: Condition and Plan of Care For the Purpose of:: To decrease pain, To increase ROM, To improve nutrient delivery to tissue, To improve muscle performance and motor function, To increase tolerance to activity/condition/position, To improve ability of physical actions for home/community/work/leisure and To improve gait and locomotor functions Therapeutic Exercise to Include: Strength training, Postural training, Flexibilty training, Gait and locomotor training, Passive ROM, Active ROM and Dynamic Lumbar Stabilization For the Purpose of:: To decrease pain, To decrease swelling/inflammation, To increase ROM, To improve nutrient delivery to tissue, To improve ability of physical actions for home/community/work/leisure and To improve gait and locomotor functions Manual Therapy Techniques to Include: Passive ROM and Soft tissue mobilization For the Purpose of:: To decrease pain, To increase ROM and To improve nutrient delivery to tissue Thermo therapy (hot pack): Yes For the Purpose of:: To decrease pain and To improve nutrient delivery to tissue Text: Thank you for the opportunity to evaluate your patient. For Medicare and Medicare HMO plans, please review the plan of care and approve it. It will need to be FAXED BACK to us at [phone] for Medicare purposes. For Medicare only, by signing this I certify the plan of care. Please let me know if there are questions or concerns regarding this plan of care. Physician Signature: Date:_
--- NOTE | 2022-12-09 15:59 | HP.PTREVAL_ITS ---
Re-Evaluation Intro: Dr. Luis Young, DO, It has been my pleasure to treat STERLING VALDES over the last 10 visits for lumbar spinal stenosis and DDD. Please see the progress note below for an update on the physical therapy plan of care! Subjective Subjective: I think I am getting better. I have less pain. Always have pain upon awakening. ES Tylenol and feel OK an hour later. Able to do the things she needs to do. Takes ibuprofen still to go out. She does this due to LBP. HEP not as compliant as she wishes. I am pretty busy with reading. Objective Objective/Function: Walking with cane I. extension Lumbar mod limited and feels good, flexion only stretches HS and no pain. Walking with cane I safely. pt admittedly has a compliance problem with HEp and wants to try to be more [id number] at home vs more therapy. Plan Plan Plan: f/u one motnh to check compliance with walking and HEEP and consider gym exercises to take to the gault. Balance/Gait/Functional tests Balance/Special Test Scores Oswestry Low Back Score: 14 Goals Goals Goal 1:: I apporopriate HEP for NS strength, LB ROM and anterior quad /psoas stretching Goal Time Frame: 2-4 Weeks Goal Progress: Goal Met Goal 2:: Pain 0-2/10 at most and 60%4 improved overall. Goal Time Frame: 4-6 Weeks Goal Progress: 42% Goal 3:: Walk into and out of PT without pain consistently Goal Time Frame: 4-6 Weeks Goal Progress: Progressing Goal 4:: oswestry score 8 or better Goal Time Frame: 4-6 Weeks Goal Progress: Progressing Goal 5:: maintain improvemnts of at least 42% and consider starting gym based core strength if compliant with home ex and walking. Goal Time Frame: 2-4 Weeks Goal Progress: NEW GOAL Anticipated Interventions Anticipated Interventions Patient/Client Instruction: Educate patient on: Condition and Plan of Care For the Purpose of:: To decrease pain, To increase ROM, To improve nutrient delivery to tissue, To improve muscle performance and motor function, To i ncrease tolerance to activity/condition/position, To improve ability of physical actions for home/community/work/leisure and To improve gait and locomotor functions Therapeutic Exercise to Include: Strength training, Postural training, Flexibilty training, Gait and locomotor training, Passive ROM, Active ROM and Dynamic Lumbar Stabilization For the Purpose of:: To decrease pain, To decrease swelling/inflammation, To increase ROM, To improve nutrient delivery to tissue, To improve ability of physical actions for home/community/work/leisure and To improve gait and locomotor functions Manual Therapy Techniques to Include: Passive ROM and Soft tissue mobilization For the Purpose of:: To decrease pain, To increase ROM and To improve nutrient delivery to tissue Thermo therapy (hot pack): Yes For the Purpose of:: To decrease pain and To improve nutrient delivery to tissue Re-Evaluation Ending Re-evaluation ending: Please do not hesitate to contact me at [phone] by phone or Fax: if you have questions or concerns regarding this new plan of care! Sincerely, Surendra Cota, DPT, OCS, CSCS
--- NOTE | 2023-02-28 07:55 | HP.PTDCNRP_ITS ---
Patient Information Patient Information: STERLING VALDES was seen in my office for initial evaluation on 11/08/22. The following Plan of Care was established for this patient: POC Established Initial Frequency: 2x /Week Initial Duration: 4-6 Weeks Anticipated Interventions Patient/Client Instruction: Educate patient on: Condition and Plan of Care For the Purpose of:: To decrease pain, To increase ROM, To improve nutrient delivery to tissue, To improve muscle performance and motor function, To increase tolerance to activity/condition/position, To improve ability of p hysical actions for home/community/work/leisure and To improve gait and locomotor functions Therapeutic Exercise to Include: Strength training, Postural training, Flexibilty training, Gait and locomotor training, Passive ROM, Active ROM and Dynamic Lumbar Stabilization For the Purpose of:: To decrease pain, To decrease swelling/inflammation, To increase ROM, To improve nutrient delivery to tissue, To improve ability of physical actions for home/community/work/leisure and To improve gait and locomotor functions Manual Therapy Techniques to Include: Passive ROM and Soft tissue mobilization For the Purpose of:: To decrease pain, To increase ROM and To improve nutrient delivery to tissue Thermo therapy (hot pack): Yes For the Purpose of:: To decrease pain and To improve nutrient delivery to tissue Last Seen Last Seen: This patient was last seen in our office 12/09/22. Pertinent comments regarding their Physical therapy will appear below: Pt seen 10 visits and was 42% better at last visit. He was to f/u a month later to check progress but did not attend. At this point, It has been over two months and I will discontinue from my care. At this point I will be discontinuing this patient from physical therapy. I would be happy to see this patient again in the future if found appropriate by the physician. Thank you! Surendra Ctoa, DPT, OCS, CSCS Balance/Gait/Functional tests Balance/Special Test Scores Oswestry Low Back Score: 14
== END 2022-12-09 19:00 | disposition home or self-care (01) ==
LOC: PT 15:00
PROVIDERS: PCP Internal Medicine; Visit Provider Orthopaedic Surgery
DX: M48.061 Spinal stenosis, lumbar region without neurogenic claudication (principal); M51.36 Other intervertebral disc degeneration, lumbar region
CPT/HCPCS: 97110; 97161; 97530

== ENCOUNTER → 2023-06-01 | Outpatient (CLI) | payer MEDICARE, SELFPAY ==
--- NOTE | 2023-06-01 16:18 | RAD_ITS ---
STUDY: BONE LENGTH STUDIES. SCANOGRAM. REASON FOR EXAM: Female, 88 years old. LIMS DIFFERENT LENGTH TECHNIQUE: AP standing views of both lower extremities were obtained. COMPARISON: None. FINDINGS: The right lower extremity is 1 cm shorter than the left. RAD/Bone Length IMPRESSION: The right lower extremity is 1 cm shorter than the left. Electronically Signed: Percy Lugo MD at 11:02 EDT ,
== END | disposition home or self-care (01) ==
LOC: RAD 16:16
PROVIDERS: PCP Internal Medicine; Referring Provider Podiatrist; Visit Provider Podiatrist
DX: M21.761 Unequal limb length (acquired), right tibia (principal); M21.762 Unequal limb length (acquired), left tibia
CPT/HCPCS: 77073

== ENCOUNTER → 2023-06-16 | Outpatient (CLI) | payer MEDICARE, SELFPAY ==
[2023-06-16 15:07] LABS: Absolute Lymphocyte Count 1.29 X10^3/uL (0.83-4.51); Absolute Neutrophil Count 4.8 X10^3/uL (2.0-7.7); Basophil# 0.03 X10^3/uL; Basophil% 0.4 % (0-1); Eosinophil# 0.04 X10^3/uL; Eosinophils% 0.6 % (0-5); Hematocrit 42.7 % (37-47); Hemoglobin 13.7 g/dL (12.0-15.0); Lymphocyte # 1.29 X10^3/ul (0.83-4.51); Lymphocyte % 19.3 % (19-41); Mean Corp Hgb Conc 32.1 g/dL (32-36); Mean Corpuscular Hgb 31.9 pg (27.0-32.0); Mean Corpuscular Volume 99.5 fL (81-99); Mean Platelet Vol. 8.4 fl (6.2-12.0); Monocyte# 0.52 X10^3/uL; Monocyte% 7.8 % (0-10); NRBC Flagged by Analyzer 0 % (0-5); Neutrophil # 4.78 X10^3/uL (2.7-7.7); Neutrophil % 71.5 % (47-70); Platelet Count 230 K/mm3 (150-450); RBC Distribution Width CV 13.5 % (11.6-14.6); RBC Distribution Width SD 49.6 fl (35.1-43.9); Red Blood Count 4.29 M/mm3 (4.2-5.4); White Blood Count 6.7 K/mm3 (4.4-11.0)
[2023-06-16 15:28] LABS: ALB/GLOB Ratio 1.3 RATIO (0.9-2.4); AST(SGOT) 20 U/L (15-37); Alanine Aminotransfer ALT/SGPT 27 U/L (13-56); Albumin, Serum 3.9 g/dL (3.2-5.0); Alkaline Phosphatase 46 U/L (45-117); Anion Gap 4 (5-15); BUN 13 mg/dL (7-18); BUN/Creat Ratio 19.5 RATIO (10-20); Chloride 102 mmol/L (98-107); Creatinine, Serum 0.67 mg/dL (0.55-1.02); EST Glomerular Filtration Rate 89 mL/min (>60); Est Glom Filt Rate - Afr Amer 108 mL/min (>60); Glucose 93 mg/dL (74-106); Potassium 5.4 mmol/L (3.5-5.1); Protein, Total 6.9 g/dL (6.4-8.2); Sodium Level 135 mmol/L (136-145)
[2023-06-16 15:33] LABS: Vitamin D,25 Hydroxy 53.7 ng/mL
== END | disposition home or self-care (01) ==
LOC: BIMLAB 13:53
PROVIDERS: PCP Internal Medicine; Visit Provider Internal Medicine
DX: M81.0 Age-related osteoporosis without current pathological fracture (principal); S42.409A Unspecified fracture of lower end of unspecified humerus, initial encounter for closed fracture
CPT/HCPCS: 36415; 80053; 82306; 85025

== ENCOUNTER → 2023-06-24 | Outpatient (CLI) | payer MEDICARE, SELFPAY ==
[2023-06-24 15:55] LABS: Anion Gap 5 (5-15); BUN 13 mg/dL (7-18); BUN/Creat Ratio 23.5 RATIO (10-20); Calcium,Total 10.2 mg/dL (8.5-10.1); Chloride 96 mmol/L (98-107); Creatinine, Serum 0.55 mg/dL (0.55-1.02); EST Glomerular Filtration Rate 110 mL/min (>60); Est Glom Filt Rate - Afr Amer 134 mL/min (>60); Glucose 102 mg/dL (74-106); Potassium 5.2 mmol/L (3.5-5.1); Sodium Level 130 mmol/L (136-145)
== END | disposition home or self-care (01) ==
LOC: BIMLAB 13:55
PROVIDERS: PCP Internal Medicine; Visit Provider Internal Medicine
DX: E87.8 Other disorders of electrolyte and fluid balance, not elsewhere classified (principal)
CPT/HCPCS: 36415; 80048

== ENCOUNTER 2023-06-27 15:00 | Outpatient (RCR) | payer MEDICARE, SELFPAY ==
--- NOTE | 2023-05-27 17:26 | HP.PTEVAL_ITS ---
Patient's Visit Information Visit Information Visit Information: STERLING VALDES is a 88 year old F referred to Physical Therapy by Dr. Minesh Maloney MD with a diagnosis of LUMBAR RADICULOPATHY. Date of Evaluation: 05/27/23 Physical Therapist: Susy Murphy PT, Cert MDT Visit Plan Frequency: 2-3x /Week Duration: 4-6 Weeks Plan: Neutral Spine Core Stability Exercises and Marvin LE Hip Flexor, Hamstring and Calf Stretching to help reduce stress to the Lumbar Spine with all Daily Activities. Marvin LE Strengthening. Instruction in Proper Posture Control, Body Mechanics, and Appropriate Activity Modifications. HEP Instruction Subjective Subjective: Work/Leisure: RETIRED Present symptoms: MARVIN LOW BACK PAIN AND L THIGH PAIN. PATIENT DENIES MARVIN LE NUMBNESS AND TINGLING. Present since: JUL 07 2022 IT CAME ON SUDDENLY - LOW BACK PAIN FOR ONE YEAR OR LESS. L THIGH PAIN STARTED ABOUT 2 WKS AGO. Pain Scale: LBP: WORST 5/10, LEAST 0/10. L THIGH: WORST 7/10, LEAST 2/10 Currently: LBP: 0/10, L THIGH 2/10 Is it getting better, worse or staying the same: STAYING THE SAME Commenced as a result of: PATIENT REPORTS RECEIVING AN GEORGIE 05/06/23 FOR L HIP PAIN DUE TO L345 SPINAL STENOSIS AND AFTER THE SHOT APPROX 05/08/23 SHE DELVELOPED THIS PAIN DOWN THE OUTSIDE OF HER LEFT THIGH TO HER KNEE. SHE STATES HER LBP STARTED ABOUT A YEAR AGO AFTER A FALL ON BUTTOCKS AT HOME IN BEDROOM - LOST BALANCE AT 4:30 AM. Worse: RISING FROM SITTING, MAKING A BED, WALKING, STEPS, BENDING. Better: TYLENOL, IBUPROFEN, SITTING, LYING, Disturbed sleep: NO Previous history/Previous treatment: PREDNISONE, WATER AND LAND PT - NO BIG EFFECT AND PATIENT REPORTS SHE DIDN'T FOLLOW THROUGH. PATIENT REPORTS SHE ISN'T CRAZY ABOUT THE WATER AND THOUGHT THE AT WAS A LOT OF FUSS FOR NOT A LOT OF BENEFIT. GEORGIE'S. PATIENT REPORTS SHE HAS AN NOAH'T WITH A Chief Design Engineer PENDING FOR HER LEG LENGTH discrepancy. Coughing/sneezing/straining: POSITIVE FOR INCREASED PAIN Gait: HAS BEEN USING A CANE A CANE SINCE June 2022. Bowel or Bladder Dysfunction: URINARY LEAKING. NO SUDDEN LOSS OF BOWEL OR BLADDER. Accidents: NO Unexplained weight loss: NO Imaging: NONE RECENT. PMH/Recent major surgery: OSTEOPENIA. OTHER: PATIENT REPORTS SHE HASN'T BEEN PAINFREE SINCE SHE FELL IN JUNE OF 2022. Objective Objective: Sitting/Standing Posture: POOR. R LATERAL SHIFT. L ILIAC CREST HIGHER THAN R. STANDING WITH R KNEE BENT AND LEANING TO THE R. SCOLIOTIC APPEARING. Active Correction of posture: NE ON BACK OR LLE PAIN. MINIMALLY ABLE TO CORRECT AND DOES NOT MAINTAIN. Other Observations: INDEP GAIT INTO PT WITH ST CANE LEANING TO THE RIGHT WITH DECREASED DWAYNE. UE ASSIST TO TRANSFER FROM SIT TO STAND. Sensory deficit: MARVIN LE LIGHT TOUCH SENSATION GROSSLY INTACT AND SYMMETRICAL ROM deficit: VERY TIGHT MARVIN HIP IR L>R. L THIGH ATROPHY. DECREASED MARVIN KNEE ROM. Motor deficit: R HIP 4/5, KNEE 4/5, ANKLE 5/5. L HIP 3+/5, KNEE 4-/5, ANKLE 5/5. Dural Signs: NEGATIVE MARVIN LE'S. Lumbar mvmt loss: flex - MIN - INCREASES - W ext - ALAINA - INCREASES - NW R SG - ALAINA - NE L SG - ALAINA - INCREASES - W PAIN IN L THIGH RETURNED TO BASELINE AFTER A FEW MINUTES IN STANDING Core strength: POOR Palpation: NO ACUTE LUMBAR, HIP OR THIGH TENDERNESS. Balance/Special Test Scores Oswestry Low Back Score: 26 Goals Goal 1:: DECREASE C/O L THIGH PAIN BY AT LEAST 50% TO EASE ADL'S Goal Time Frame: 4-6 Weeks Goal 2:: IMPROVE WALKING, STAIR CLIMBING, BENDING, BED MAKING, AND RISING FROM SITTING FUNCTION. Goal Time Frame: 4-6 Weeks Goal 3:: INSTRUCT IN PROPHYLAXIS Goal Time Frame: 4-6 Weeks Rehabilitation Potential Physical Therapy Diagnosis: LB AND L THIGH PAIN. DECREASED SPINE MOBILITY/SCOLIOSIS. GAIT DIFFICULTY. LE STIFFNESS AND MARVIN LE WEAKNESS L>R. Rehabilitation Potential: Good Anticipated Interventions Patient/Client Instruction: Educate patient on: Condition, Plan of Care and Risk Factors For the Purpose of:: To improve self management Therapeutic Exercise to Include: Strength training, Body mechanics, Postural training, Flexibilty training, Gait and locomotor training, Neuromotor development and Dynamic Lumbar Stabilization For the Purpose of:: To decrease pain, To improve muscle performance and motor function, To increase tolerance to activity/condition/position, To improve ability of physical actions for home/community/work/leisure and To improve gait and locomotor functions Cryotherapy (ice pack, ice massage): Yes Thermo therapy (hot pack): Yes Ultrasound (thermal/non thermal): Yes For the Purpose of:: To decrease pain and To improve nutrient delivery to tissue Text: Thank you for the opportunity to evaluate your patient. For Medicare and Medicare HMO plans, please review the plan of care and approve it. It will need to be FAXED BACK to us at [phone] for Medicare purposes. For Medicare only, by signing this I certify the plan of care. Please let me know if there are questions or concerns regarding this plan of care. Physician Signature: Date:
--- NOTE | 2023-06-27 16:02 | HP.PTDCSUM ---
Discharge Summary D/C summary: It has been my pleasure to treat STERLING VALDES referred by Dr. Minesh Maloney MD, with the diagnosis of LUMBAR RADICULOPATHY for a total of 9 visit(s). Discharge Date: 06/27/23 Please see the following information for a summary of their discharge status. Subjective Subjective: PATIENT REPORTS GETTING UP ROM A CHAIR AND THE PAIN LEVEL HAS IMPROVED SOME SINCE STARTING PT. SHE REPORTS SHE HASN'T BEEN CONSISTENT WITH HER HOME EX'S. PATIENT REPORTS SHE KNOWS THE EX'S AND SHE FEELS SHE MIGHT GET MORE OUT OF THEM OVER TIME IF SHE WORKS AT THEM. R LEG IS 3/8 INCH SHORTER THAN L AND NOW WEARING LIFT IN SHOE AND I'M SURE IT HELPS . BACK AND LLE PAIN RANGES 0-7/10 NOW. 7/10 PAIN IN THE MORNINGS THAT LASTS ABOUT 1 HOUR AND THEN STARTS GETTING BETTER AFTER TAKING 2 EXTRA STRENGTH TYLONOL. IBUPROFEN HELPS TOO. RISING FROM SITTING AND GOING FROM STANDING TO SITTING INCREASES PAIN. Pain L LATERAL THIGH: Pain Intensity (Out of 10): 2 Overall Improvement % Improvement: 35 Objective Objective/Function: PATIENT IS REPORTING SOME DECREASE IN PAIN AND IMPROVED FUNCTION. SHE FEELS LIKE THE EX'S SHE HAS BEEN GIVEN ARE EFFECTIVE AND SHE NEEDS TO GET MORE CONSISTENT WITH DOING THEM. SHE WOULD LIKE TO BE DISCHARGED AND TRY CONTINUING THEM ON HER OWN AT THIS POINT. UPON EXAM TODAY: ROM deficit: VERY TIGHT MARVIN HIP IR L>R. L THIGH ATROPHY. DECREASED MARVIN KNEE ROM. Motor deficit: R HIP 4/5, KNEE 4/5, ANKLE 5/5. L HIP 4-/5, KNEE 4-/5, ANKLE 5/5. Dural Signs: NEGATIVE MARVIN LE'S. Lumbar mvmt loss: flex - MIN - INCREASES - W ext - ALAINA - NE R SG - ALAINA - NE L SG - ALAINA - INCREASES - W PAIN IN L THIGH RETURNED TO BASELINE AFTER A FEW MINUTES IN STANDING Core strength: POOR Palpation: NO ACUTE LUMBAR, HIP OR THIGH TENDERNESS. Goals Goal 1:: DECREASE C/O L THIGH PAIN BY AT LEAST 50% TO EASE ADL'S Goal Progress: Progressing Goal 2:: IMPROVE WALKING, STAIR CLIMBING, BENDING, BED MAKING, AND RISING FROM SITTING FUNCTION. Goal Progress: Progressing Goal 3:: INSTRUCT IN PROPHYLAXIS Goal Progress: Progressing Plan Plan: D/C TO HEP D/C Information d/c sentence: If there are questions or concerns regarding this patient's physical therapy, please feel free to call me at [phone]. Thank you for the referral of this patient. Sincerely, Susy Murphy, PT, Cert MDT Balance/Gait/Functional tests Balance/Special Test Scores Oswestry Low Back Score: 23 Improvement % Improvement: 35
== END 2023-06-27 19:00 | disposition home or self-care (01) ==
LOC: PT 15:00
PROVIDERS: PCP Internal Medicine; Referring Provider Anesthesiology; Visit Provider Anesthesiology
DX: M54.16 Radiculopathy, lumbar region (principal)
CPT/HCPCS: 97035; 97110; 97162; 97530

== ENCOUNTER → 2023-07-05 | Outpatient (CLI) | payer MEDICARE, SELFPAY ==
[2023-07-05 16:22] LABS: Absolute Lymphocyte Count 1.09 X10^3/uL (0.83-4.51); Absolute Neutrophil Count 3.8 X10^3/uL (2.0-7.7); Basophil# 0.03 X10^3/uL; Basophil% 0.6 % (0-1); Eosinophil# 0.03 X10^3/uL; Eosinophils% 0.6 % (0-5); Hematocrit 39.8 % (37-47); Hemoglobin 13.1 g/dL (12.0-15.0); Lymphocyte # 1.09 X10^3/ul (0.83-4.51); Mean Corp Hgb Conc 32.9 g/dL (32-36); Mean Corpuscular Hgb 32.7 pg (27.0-32.0); Mean Corpuscular Volume 99.3 fL (81-99); Mean Platelet Vol. 8.7 fl (6.2-12.0); Monocyte# 0.46 X10^3/uL; Monocyte% 8.5 % (0-10); NRBC Flagged by Analyzer 0 % (0-5); Neutrophil # 3.82 X10^3/uL (2.7-7.7); Neutrophil % 70.1 % (47-70); Platelet Count 248 K/mm3 (150-450); RBC Distribution Width CV 13.4 % (11.6-14.6); Red Blood Count 4.01 M/mm3 (4.2-5.4); White Blood Count 5.4 K/mm3 (4.4-11.0)
[2023-07-05 16:34] LABS: PTHIN 91.8 pg/mL (18.4-80.1)
[2023-07-05 16:37] LABS: ALB/GLOB Ratio 1.2 RATIO (0.9-2.4); AST(SGOT) 21 U/L (15-37); Alanine Aminotransfer ALT/SGPT 25 U/L (13-56); Albumin, Serum 3.7 g/dL (3.2-5.0); Alkaline Phosphatase 49 U/L (45-117); Anion Gap 6 (5-15); BUN 12 mg/dL (7-18); Calcium,Total 10.1 mg/dL (8.5-10.1); Chloride 98 mmol/L (98-107); EST Glomerular Filtration Rate 101 mL/min (>60); Est Glom Filt Rate - Afr Amer 122 mL/min (>60); Globulin 3.2 g/dL (2.2-4.2); Glucose 90 mg/dL (74-106); Protein, Total 6.9 g/dL (6.4-8.2); Sodium Level 130 mmol/L (136-145)
[2023-07-05 17:33] LABS: Erythrocyte Sedimentation Rate 8 mm/hr (0-30)
== END | disposition home or self-care (01) ==
LOC: BIMLAB 12:13
PROVIDERS: PCP Internal Medicine; Visit Provider Internal Medicine
DX: E83.52 Hypercalcemia (principal); E87.8 Other disorders of electrolyte and fluid balance, not elsewhere classified
CPT/HCPCS: 36415; 80053; 83970; 85025; 85652

== ENCOUNTER → 2023-07-29 | Outpatient (CLI) | payer MEDICARE, SELFPAY ==
[2023-07-29 16:11] LABS: PTHIN 86.8 pg/mL (18.4-80.1)
[2023-07-29 16:14] LABS: Vitamin D,25 Hydroxy 43.8 ng/mL
[2023-07-29 16:21] LABS: Anion Gap 6 (5-15); BUN 10 mg/dL (7-18); BUN/Creat Ratio 18.6 RATIO (10-20); Chloride 96 mmol/L (98-107); Creatinine, Serum 0.54 mg/dL (0.55-1.02); EST Glomerular Filtration Rate 114 mL/min (>60); Est Glom Filt Rate - Afr Amer 138 mL/min (>60); Glucose 93 mg/dL (74-106); Potassium 4.2 mmol/L (3.5-5.1); Sodium Level 130 mmol/L (136-145)
[2023-07-30 01:07] LABS: Amphetamine Urine VISTA NEGATIVE (<1000 ng/mL); Barbiturate Urine VISTA NEGATIVE (< 200 ng/mL); Benzodiazepine Urine VISTA NEGATIVE (< 200 ng/mL); Cocaine Urine VISTA NEGATIVE (< 300 ng/mL); Ecstacy Urine VISTA NEGATIVE (< 500 ng/mL); Methadone Urine VISTA NEGATIVE (< 300 ng/mL); PCP Urine VISTA NEGATIVE (< 25 ng/mL); THC Urine VISTA NEGATIVE (< 50 ng/mL); Vista UDS pH Range 6
== END | disposition home or self-care (01) ==
LOC: LAB 15:13
PROVIDERS: PCP Internal Medicine; Referring Provider Anesthesiology; Visit Provider Anesthesiology
DX: F11.20 Opioid dependence, uncomplicated (principal); E83.52 Hypercalcemia
CPT/HCPCS: 36415; 80048; 80307; 82306; 83970

== ENCOUNTER → 2023-09-06 | Outpatient (CLI) | payer MEDICARE, SELFPAY ==
--- NOTE | 2023-09-06 15:24 | BD_ITS ---
STUDY: DUAL ENERGY X-RAY ABSORPTIOMETRY / DXA REASON FOR EXAM: Female, 88 years old. Post- Menopausal TECHNIQUE: Bone Mineral Density (BMD) measurements of lumbar spine and bilateral hips were obtained. COMPARISON: Comparison is made with prior study of May 07, 2021. FINDINGS: Lumbar Spine (L1-L4): g/cm2 (1.217) / T-score (1.5) / Z-score (4.4) Findings are suggestive of normal bone density with a low fracture risk. Left Femur Total: g/cm2 (0.727) / T-score (-1.8) / Z-score (0.6) Left Femoral Neck: g/cm2 (0.710) / T-score (-1.2) / Z-score (1.3) Right Femur Total: g/cm2 (0.700) / T-score (-2.0) / Z-score (0.4) Right Femoral Neck: g/cm2 (0.760) / T-score (-0.8) / Z-score (1.7) The T-Scores on the most recent prior examination were: Lumbar Spine (L1-L4): There has been worsening of bone density since the previous examination. Left Femur Total: which represents an improvement of 1.2%. Right Femur Total: which represents a worsening of 3.8%. BD/Dexa Bone Density Study IMPRESSION: The patient is considered osteopenic as outlined below according to World Ag[employer] Organization (WHO) criteria with a moderate fracture risk. There has been worsening of bone density since the previous examination. Reference Information: The T-score is the number of standard deviations above or below the standard which is normal for young adults at their peak bone mineral density. The World Health Organization (WHO) interprets the T-scores as follows: Above -1 Normal bone density Between -1 and -2.5 Osteopenia Equal to / or below -2.5 Osteoporosis As a practical clinical guideline, osteopenia may be graded as follows: Mild -1 through -1.5 Moderate -1.6 through -2.0 Severe -2.1 through -2.4 The Z-score is the number of standard deviations above or below age-matched controls. A Z-score of less than -1.5 would be considered abnormal. References: 1. NIH Osteoporosis and Related Bone Diseases www osteo.org 2. International Society for Clinical Densitometry www iscd.org 3. National Osteoporosis Foundation www nof.org Electronically Signed: Percy Lugo MD at 9:37 EDT ,
== END | disposition home or self-care (01) ==
LOC: OPBD 15:20
PROVIDERS: PCP Internal Medicine; Referring Provider Internal Medicine; Visit Provider Internal Medicine
DX: Z78.0 Asymptomatic menopausal state (principal); M81.0 Age-related osteoporosis without current pathological fracture
CPT/HCPCS: 77080

== ENCOUNTER → 2023-10-03 | Outpatient (CLI) | payer MEDICARE, SELFPAY ==
[2023-10-03 12:51] LABS: PTHIN 68.3 pg/mL (18.4-80.1)
[2023-10-03 13:19] LABS: ALB/GLOB Ratio 1.2 RATIO (0.9-2.4); AST(SGOT) 28 U/L (15-37); Alanine Aminotransfer ALT/SGPT 35 U/L (13-56); Albumin, Serum 3.6 g/dL (3.2-5.0); Alkaline Phosphatase 52 U/L (45-117); Anion Gap 5 (5-15); BUN 9 mg/dL (7-18); BUN/Creat Ratio 13.1 RATIO (10-20); Calcium,Total 10.2 mg/dL (8.5-10.1); Chloride 100 mmol/L (98-107); Creatinine, Serum 0.69 mg/dL (0.55-1.02); EST Glomerular Filtration Rate 86 mL/min (>60); Est Glom Filt Rate - Afr Amer 104 mL/min (>60); Globulin 3.1 g/dL (2.2-4.2); Glucose 125 mg/dL (74-106); Potassium 4.7 mmol/L (3.5-5.1); Protein, Total 6.7 g/dL (6.4-8.2); Sodium Level 132 mmol/L (136-145)
== END | disposition home or self-care (01) ==
LOC: BIMLAB 10:15
PROVIDERS: PCP Internal Medicine; Referring Provider Internal Medicine; Visit Provider Internal Medicine
DX: E87.8 Other disorders of electrolyte and fluid balance, not elsewhere classified (principal); E83.52 Hypercalcemia; E87.5 Hyperkalemia
CPT/HCPCS: 36415; 80053; 83970

== ENCOUNTER → 2023-11-12 | Outpatient (CLI) | payer MEDICARE, SELFPAY ==
--- NOTE | 2023-11-12 08:48 | MRI_ITS ---
EXAM: MR LUMBAR SPINE WITHOUT INTRAVENOUS CONTRAST CLINICAL INDICATION: lumbar spondylosis TECHNIQUE: Multiplanar and multisequence MR images of the lumbar spine without intravenous contrast. COMPARISON: No relevant prior studies available. FINDINGS: VERTEBRAE: 8 mm of anterior listhesis of L4 on L5. Mild retrolisthesis of L1 on L2 and L2 on L3. Lumbar lordosis is otherwise well-maintained. No compression deformity of the vertebral bodies. 15 mm hemangioma noted within the T12 vertebral body. SPINAL CORD: Normal. Normal position and signal intensity of the conus medullaris. SOFT TISSUES: Normal. DISCS/SPINAL CANAL/NEURAL FORAMINA: T12-L1: Moderate disc space narrowing and prominent circumferential disc bulging, ligamentous hypertrophy and facet arthropathy results in mild spinal and neural foraminal stenoses. L1-L2: Prominent disc space narrowing with Modic type II endplate changes. Prominent disc osteophyte complex, ligamentous hypertrophy and facet arthropathy results in mild spinal stenosis and moderate neural foraminal narrowing. L2-L3: Prominent disc space narrowing with Modic type II endplate changes. Right central disc protrusion, ligamentous hypertrophy and facet arthropathy results in moderate spinal stenosis and moderate left and moderate to severe right neural foraminal stenoses. L3-L4: Prominent disc space narrowing with Modic type II endplate changes. Broad-based disc herniation, ligamentous hypertrophy and facet arthropathy results in moderate to severe spinal stenosis and moderate to severe right and moderate left neural foraminal stenoses. L4-L5: Moderate disc space narrowing with Modic type II endplate changes. Broad-based disc herniation, ligamentous hypertrophy and facet arthropathy results in severe spinal stenosis and severe bilateral neural foraminal stenoses. L5-S1: No significant disc space narrowing. Broad-based disc protrusion and facet arthropathy result in moderate bilateral neural foraminal stenosis. No significant spinal stenosis. 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 Electronically Signed: Denzel Thomas MD at 10:34 EDT ,
== END | disposition home or self-care (01) ==
LOC: MRI 08:40
PROVIDERS: PCP Internal Medicine; Referring Provider Orthopaedic Surgery Orthopaedic Surgery of the Spine; Visit Provider Orthopaedic Surgery Orthopaedic Surgery of the Spine
DX: M43.06 Spondylolysis, lumbar region (principal)
CPT/HCPCS: 72148

== ENCOUNTER → 2024-07-20 | Outpatient (CLI) | payer MEDICARE, SELFPAY ==
[2024-07-20 15:23] LABS: Absolute Lymphocyte Count 1.46 X10^3/uL (0.83-4.51); Absolute Neutrophil Count 2.8 X10^3/uL (2.0-7.7); Basophil# 0.03 X10^3/uL; Basophil% 0.6 % (0-1); Eosinophil# 0.08 X10^3/uL; Eosinophils% 1.6 % (0-5); Hematocrit 41.3 % (37-47); Hemoglobin 13.8 g/dL (12.0-15.0); Lymphocyte # 1.46 X10^3/ul (0.83-4.51); Mean Corp Hgb Conc 33.4 g/dL (32-36); Mean Corpuscular Hgb 32.9 pg (27.0-32.0); Mean Corpuscular Volume 98.3 fL (81-99); Mean Platelet Vol. 8.7 fl (6.2-12.0); Monocyte# 0.44 X10^3/uL; NRBC Flagged by Analyzer 0 % (0-5); Neutrophil # 2.84 X10^3/uL (2.7-7.7); Neutrophil % 58.4 % (47-70); Platelet Count 210 K/mm3 (150-450); RBC Distribution Width CV 13.4 % (11.6-14.6); RBC Distribution Width SD 48.5 fl (35.1-43.9); White Blood Count 4.9 K/mm3 (4.4-11.0)
[2024-07-20 18:10] LABS: ALB/GLOB Ratio 1.9 RATIO (0.9-2.4); AST(SGOT) 28 U/L (<=31); Alanine Aminotransfer ALT/SGPT 24 U/L (<=34); Albumin, Serum 4.3 g/dL (3.4-4.8); Alkaline Phosphatase 44 U/L (35-104); Anion Gap 9 (5-15); BUN 10 mg/dL (4-19); BUN/Creat Ratio 17.4 RATIO (10-20); Calcium,Total 10.2 mg/dL (7.6-11.0); Chloride 97 mmol/L (98-108); Creatinine, Serum 0.56 mg/dL (0.70-1.20); EST Glomerular Filtration Rate 88 (>60); Globulin 2.3 g/dL (2.2-4.2); Glucose 88 mg/dL (70-99); Potassium 4.6 mmol/L (3.3-5.1); Protein, Total 6.6 g/dL (5.9-8.4); Sodium Level 132 mmol/L (133-145); Total Bilirubin 0.31 mg/dL (0.00-1.30)
--- OUTSIDE RECORDS SUMMARY | 2024-07-20 19:06 | XMS RPT_ITS | CCD ---
Author Organization [facility] Care Team Providers Care Wildlife Enforcement Major Name Role Phone Dr. Abhishek Foy Primary Care Provider [phone]) Dr. Abhishek Foy Attending Provider [phone] Dr. Abhishek Foy Referring Provider [phone])2 Dr. Abhishek Foy Primary Care Provider 1(33 0) Dr. Abhishek Foy Referring Provider [phone])2 KELSI Mitchell Attending Provider Dr. Abhishek Foy Attending Provider [phone])2 Dr. Abhishek Foy Primary Care Provider 1(33 0) Dr. Abhishek Foy Referring Provider [phone])2 KELSI Mitchell Attending Provider KELSI Rehman Attending Provider [phone] Dr. Luis Young Attending Provider [phone] Dr. Jonathan Amaya Attending Provider [phone] Dr. Abhishek Foy Primary Care Provider 1([phone]) Dr. Abhishek Foy Referring Provider [phone])2 Dr. Luis Young Attending Provider [phone] Dr. Abhishek Foy Attending Provider [phone])2 Abhishek Foy Attending Unavailable Abhishek Foy Referring Unavailable Abhishek Foy Primary Care Unavailable Oleghe, Efewongbe Referring Unavailable Heladio Trimbleew Attending Unavailable Oleghe, Efewongbe Primary Care Unavailable Oleghe, Efewongbe Referring Unavailable Oleghe, Efewongbe Primary Care Unavailable Rd Mendez Attending Unavailable Jonathan Amaya Attending Unavailable Oleghe, Efewongbe Primary Care Unavailable Oleghe, Efewongbe Referring Unavailable Oleghe, Efewongbe Primary Care Unavailable Rd Mendez Attending Unavailable Minesh Maloney Referring Unavailable Oleghe, Efewongbe Primary Care Unavailable Minesh Maloney Attending Unavailable Oleghe, Efewongbe Primary Care Unavailable Rd Mendez Attending Unavailable Rd Mendez Referring Unavailable Oleghe, Efewongbe Attending Unavailable Oleghe, Efewongbe Referring Unavailable Oleghe, Efewongbe Primary Care Unavailable Oleghe, Efewongbe Attending Unavailable Oleghe, Efewongbe Referring Unavailable Oleghe, Efewongbe Primary Care Unavailable Medications Current Medications Medication Drug Class(es) Dates Sig (Normalized) Sig (Original) acetaminophen 500 mg oral tablet (5 sources) Start: 06-16-2023 take 1000 mg by mouth three times daily Acetaminophen Active 1000 MG PO THREE TIMES A DAY June 16, 2023 1:21pm Start: 09-13-2022 End: 06-16-2023 take 500 mg by mouth every six hours Acetaminophen Discontinued 500 MG PO EVERY 6 HOURS September 13, 2022 12:00am June 16, 2023 1:22pm calcium carbonate 1500 mg / cholecalciferol 800 unt chewable tablet (7 sources) Vitamin D Start: 05-01-2018 Calcium Carbonate-Vitamin D3 (Caltrate 600 + D) 600 mg (1,500 mg)-800 unit tablet,chewable Active 1 TABLET PO TWICE A DAY May 01, 2018 12:00am cholecalciferol 0.025 mg oral capsule (7 sources) Vitamin D Start: 09-19-2019 take 25 ug by mouth once daily Cholecalciferol (Vitamin D3) Active 25 MCG PO DAILY September 19, 2019 12:00am multivitamin capsule (7 sources) Start: 05-01-2018 take 1 capsule by mouth once daily multivitamin capsule Active 1 CAP PO DAILY May 01, 2018 1:28pm Start: 05-01-2018 take 1 capsule by [facility] once daily multivitamin capsule Active 1 CAP PO DAILY April 30, 2018 11:00pm Start: 05-01-2018 take 1 capsule by [facility] once daily multivitamin capsule Active 1 CAP PO DAILY May 01, 2018 12:00am Completed/Discontinued Medications Medication Drug Class(es) Dates Sig (Normalized) Sig (Original) acetaminophen 300 mg / codeine phosphate 30 mg oral tablet (7 sources) Opioid Agonist Start: 0 End: 0 take 1 tablet by mouth every six hours as needed Acetaminophen-Codeine Discontinued 1 - 2 TABLET PO EVERY 6 HOURS NEEDED September 28, 2019 12:00am November 05, 2019 1:14pm acetaminophen 325 mg / HYDROcodone bitartrate 5 mg oral tablet (7 sources) Opioid Agonist Start: 9 End: 9 take 1 tablet by mouth every six hours as needed Hydrocodone-Acetamino phen Discontinued 1 TABLET PO EVERY 6 HOURS NEEDED 10 3 May 13, 2018 12:00am May 16, 2018 12:08am alendronic acid 70 mg oral tablet (20 sources) Bisphosphonate Start: 9 End: 3 take 1 tablet by mouth every week Alendronate Discontinued 70 MG PO EVERY WEEK May 12, 2021 12:45pm January 28, 2022 4:54pm TAKE 1 TABLET BY MOUTH EACH WEEK cephalexin 500 mg oral capsule (7 sources) Cephalosporin Antibacterial Start: 0 End: 0 take 1 capsule by mouth every six hours Cephalexin (Keflex) 500 mg capsule Discontinued 500 MG PO EVERY 6 HOURS 40 October 11, 2019 12:00am October 21, 2019 12:02am take as directed cyclobenzaprine hydrochloride 5 mg oral tablet (8 sources) Muscle Relaxant Start: 3 End: 3 take 5 mg by mouth at bedtime Cyclobenzaprine Discontinued 5 MG PO AT BEDTIME July 07, 2022 12:00am July 07, 2022 11:55am 1 ml denosumab 60 mg/ml prefilled syringe (7 sources) RANK Ligand Inhibitor Start: 9 End: 9 Denosumab (Prolia) 60 mg/mL syringe Discontinued 60 MG SC every 6 months June 06, 2018 12:00am June 21, 2018 1:09pm diclofenac sodium 0.01 mg/mg topical gel (7 sources) Nonsteroidal Anti-inflammatory Drug Start: 1 End: 2 apply 2 g topically once Diclofenac Sodium (Voltaren) 1 % gel Discontinued 2 GM TOPICAL ONCE 150 May 02, 2020 12:00am May 04, 2021 10:14am apply to single elbow, wrist or hand; for hand includes palm/fingers/back of hand methylPREDNISolone 4 mg oral tablet (7 sources) Corticosteroid Start: 0 End: 0 take 1 tablet by mouth once Methylprednisolone (Medrol (Michael)) 4 mg tablets,dose pack Discontinued 0 PO per package directions April 06, 2019 1:00am May 08, 2019 12:59pm PO PER PKG DIR naproxen sodium 220 mg oral capsule (4 sources) Nonsteroidal Anti-inflammatory Drug Start: 3 End: 4 take 1 capsule by mouth twice daily Naproxen Sodium (Aleve) 220 mg capsule Discontinued 220 MG PO TWICE A DAY July 29, 2022 12:00am March 23, 2023 2:41pm Nirmatrelvir-Ritonavir (5 sources) Start: 2 End: 3 Nirmatrelvir-Ritonavi r (Paxlovid (Eua)) 300 mg (150 mg x 2)-100 mg tablets,dose pack Discontinued 0 PO .COMPLEX January 28, 2022 12:00am May 03, 2022 7:46am take TWO 150 mg tablets of nirmatrelvir with ONE 100 mg tablet of ritonavir twice daily for 5 days PO Start: 01-28-2022 End: 05-03-2022 Nirmatrelvir-Ritonavir (Paxl ovid (Eua)) 300 mg (150 mg x 2)-100 mg tablets,dose pack Discontinued 0 PO .COMPLEX January 28, 2022 1:00am May 03, 2022 8:46am take TWO 150 mg tablets of nirmatrelvir with ONE 100 mg tablet of ritonavir twice daily for 5 days PO predniSONE 20 mg oral tablet (12 sources) Start: 07-07-2022 End: 09-13-2022 take 20 mg by mouth twice daily Prednisone Discontinued 20 MG PO TWICE A DAY July 29, 2022 3:37pm September 13, 2022 1:37pm Problems Active Problems Problem Classification Problem Date Documented Da te Episodic/Chronic Adjustment disorders (2 sources) Grief finding; Translations: [Adjustment disorder with depressed mood] 06-16-2023 Chronic Fracture of upper limb (7 sources) Elbow fracture; Translations: [Unspecified fracture of lower end of unspecified humerus, initial encounter for closed fracture] 09-28-2019 Episodic Osteoarthritis (13 sources) Arthritis; Translations: [Unspecified osteoarthritis, unspecified site] 09-28-2019 Chronic Osteoporosis (12 sources) Osteoporosis; Translations: [Age-related osteoporosis without current pathological fracture] Onset: 07-04-2024 Chronic Other bone disease and musculoskeletal deformities (7 sources) Osteopenia; Translations: [Other specified disorders of bone density and structure, unspecified site] 09-28-2019 Episodic Other ear and sense organ disorders (7 sources) Hearing loss; Translations: [Unspecified hearing loss, unspecified ear] 09-28-2019 Chronic Other nervous system disorders (7 sources) Carpal tunnel syndrome; Translations: [Carpal tunnel syndrome, unspecified upper limb] 05-04-2021 Chronic Other nervous system disorders (2 sources) Carpal tunnel syndrome, unspecified upper limb; Translations: [Carpal tunnel syndrome] Chronic Residual codes; unclassified (7 sources) Insomnia; Translations: [Insomnia, unspecified] 09-28-2019 Episodic Residual codes; unclassified (7 sources) History of malignant neoplasm of skin; Translations: [Family history of malignant neoplasm of other organs or systems] 09-28-2019 Episodic Residual codes; unclassified (4 sources) Insomnia, unspecified; Translations: [Insomnia, unspecified] Episodic Spondylosis; intervertebral disc disorders; other back problems (4 sources) Degeneration of lumbar intervertebral disc; Translations: [Other intervertebral disc degeneration, lumbar region] 10-08-2022 Chronic Spondylosis; intervertebral disc disorders; other back problems (13 sources) Sacroiliac disorder; Translations: [Sacrococcygeal disorders, not elsewhere classified] 07-29-2022 Episodic Sprains and strains (6 sources) Lower back injury; Translations: [Strain of muscle, fascia and tendon of lower back, initial encounter] 07-07-2022 Episodic Substance-related disorders (1 source) Opioid dependence, uncomplicated; Translations: [Opioid dependence, uncomplicated] Onset: 08-26-2023 Chronic Superficial injury; contusion (5 sources) Contusion of hip; Translations: [Contusion of left hip, initial encounter] 07-07-2022 Episodic Unclassified (1 source) Low back pain, unspecified; Translations: [Low back pain, unspecified] Onset: 10-07-2023 Viral infection (6 sources) Disease caused by 2019-nCoV; Translations: [COVID-19] 01-28-2022 Episodic Past or Other Problems Problem Classification Problem Date Documented Da te Episodic/Chronic Fluid and electrolyte disorders (2 sources) Disorder of electrolytes; Translations: [Other disorders of electrolyte and fluid balance, not elsewhere classified] Onset: 10-19-2023 06-17-2023 Episodic Other acquired deformities (1 source) Spondylolysis, lumbar region; Translations: [Spondylolysis, lumbar region] Onset: 12-05-2023 Episodic Residual codes; unclassified (1 source) Asymptomatic menopausal state; Translations: [Asymptomatic menopausal state] Onset: 09-27-2023 Episodic Results Test Name Value Interpretation Reference Range Facility Office Visit Reporton 2024 Office Visit Report [facility] [address] [place] [address] OFFICE VISIT Date of Service: 04/05/24 MR#: [id number] Acct: [id number] Patient: STERLING VALDES Rep #: [id number] : 1935 Provider: EVELIO NURSE Age/Sex: 89/F Location: [facility] [place] Status: Signed Intake Vital Signs 11/14/23 09:23 Height 5 ft 3 in Intake Visit Reasons: PROLIA-$250 Chief Complaint: lumbar spine Allergies No Known Allergies Allergy (Verified 11/18/23 13:06) Have you fallen in the past year?: No Office Procedures Injections Is this a patient provided medication?: No Office Meds Prolia 60 mg/mL subcutaneous syringe Performing Provider: Abhishek Foy MD Performing Location: [facility] Administered by: Gia Roach on 04/05/24 15:17 Dose Route Admin Location Dispensed Lot Number Expiration Date [place] Man ufacturer 60 mg subcut Right Arm 1 mL [id number] 08/13/26 09086-755-36 AMGEN Comments: Patient here for Prolia injection; tolerated well. BUY BILL Assessment and Plan Assessment and Plan Orders: Orders Prolia Injection 04/05/24 M81.0 - Age-related osteoporosis without current pathological fracture Clinical Quality Measures Falls Risk Screening/Assistive Devices Have you fallen in the past year?: No 06/27/24 0737 Date Mart Davis Signature: Date (if applicable) CC: Normal [facility] Orthopedic Visit Reporton Orthopedic Visit Report [facility] [address] [place] [address] OFFICE VISIT Date of Service: 11/18/23 MR#: [id number] Acct: [id number] Name: STERLING VALDES Rep #: [id number] : 1935 Provider: Dr. Rd Mendez MD Age/Sex: 88/F Location: [facility] [place] Status: Signed Intake Vital Signs 10/07/23 14:09 11/14/23 09:23 Height 5 ft 3 in 5 ft 3 in Weight: 148 lb BMI 26.2 Intake Visit Reasons: Lumbar spine injury Chief Complaint: lumbar spine Accompanied by: Self Is patient in pain?: Yes Pain scale (1-10): 4 Allergies No Known Allergies Allergy (Verified 11/18/23 13:06) Medications ???Medication ???Instructions ???Recorded ???Confirmed ???Type cholecalciferol (vitamin D3) 25 25 mcg PO DAILY 09/19/19 11/18/23 History mcg (1,000 unit) capsule acetaminophen 500 mg tablet 1,000 mg PO TID PRN 06/16/23 11/18/23 History multivitamin with calcium carb and tab PO 07/05/23 11/18/23 History iron tablet denosumab 60 mg/mL subcutaneous 60 mg subcut [id number] #1 mL 09/19/23 11/18/23 Rx syringe (Prolia) tramadol 50 mg tablet 50 mg PO TID PRN 11/18/23 11/18/23 History Have you fallen in the past year?: No PFSH Medical History Hyperkalemia Hypercalcemia Electrolyte abnormality Grief reaction Contusion of left hip Acute lumbar myofascial strain Osteoarthritis COVID-19 Fractured elbow Insomnia History of skin cancer of unknown type Hearing loss History of vaginal delivery Osteopenia Carpal tunnel syndrome Arthritis Surgical History History of carpal tunnel release History of oral surgery History of bilateral cataract extraction Family History Father Cancer Brother Cancer Thyroid disorder Son Colon cancer Seizures Daughter Thyroid disorder Social History Smoking Status: Former smoker quit date: 02/14/73 Tobacco: How many years used: 15 alcohol intake: current alcohol intake frequency: holidays/special occasions only Alcohol type: wine substance use type: does not use what type of physical activity do you participate in: aerobics and weight training frequency: 1-2 times per week HPI Lumbar Spine Injury/Condition Patient presented to the office for a MRI Review. Patient states no change in her pain since MRI. Patient has some pain going down her legs. She continues to have low back and left sided buttock pain. HPI from 10/07/23: STERLING VALDES is a 88 year old F here today for initial evaluation of lumbar spine pain. She uses a cane to ambulate. She reports a fall 15 months ago when she got up at night and fell on her buttocks and landed on the carpeted floor. She was given prednisone after the fall which she reports was helpful. She reports the pain has been getting progressively worse over the last few months. She has been seeing Dr. Maloney for pain management. She has received 3 injections from him and reports only one was helpful. She has also completed PT. She denies numbness and tingling into her legs. Pt does ambulate with a cane. Pain goes below her left knee on the lateral side. No numbness or tingling. Denies right sided pain. She takes 3 tramadol a day. Ortho Exam General General: Yes no acute distress Neurologic: Yes alert and Yes oriented x3 Spine SPINE TESTING CERVICAL THORACIC LUMBAR Musculoskeletal Strength 0=absent - 5=normal Details: Neurological exam of the lower extremities shows 5x5 power. Normal sensations across all dermatomes. No hyperreflexia. No midline or paraspinal tenderness. Figure 4 negative. Coding Level of Care Code Off vis,est,level 4 Diagnoses Spondylolisthesis, lumbar region M43.16 Spinal stenosis of lumbar region with neurogenic claudication M48.062 Time Spent (min) 35 Assessment and Plan Assessment and Plan (1) Spondylolisthesis, lumbar region: Status: Acute (2) Spinal stenosis of lumbar region with neurogenic claudication: Status: Acute Plan Patient is here today to review MRI results. Also reviewed prior xrays which showed L4-L5 spondylolisthesis with instability seen in flexion and extension views. L3-5 shows severe central foraminal and lateral recess stenosis bilaterally. Explained to her the imaging findings in detail. While she does have significant central stenosis, her symptoms seem to be related to left hamstring pain mostly in the region of the left ischial tuberosity. She is unable to walk distances because of balance issues rather than claudication. She has seen Dr. Maloney at pain management and she has had an injection that was helpful. She said that the second of the 3 i (more content not included)... Normal [facility] Spine Lumbar (Routine)on Spine Lumbar (Routine) [facility] [address] [place], [place] [id number] Spine Lumbar (Routine) MR#: [id number] Acct: [id number] Name: STERLING VALDES Rep #: [id number] : 1935 F 88 From: Denzel Thomas MD PCP: Dr. Abhishek Foy MD Status: REG CLI Study: Spine Lumbar (Routine) Date of Exam: 11/12/23 Exam# [id number] Ordering Dr: Rd Mendez MD [id number] EXAM: MR LUMBAR SPINE WITHOUT INTRAVENOUS CONTRAST CLINICAL INDICATION: lumbar spondylosis TECHNIQUE: Multiplanar and multisequence MR images of the lumbar spine without intravenous contrast. COMPARISON: No relevant prior studies available. FINDINGS: VERTEBRAE: 8 mm of anterior listhesis of L4 on L5. Mild retrolisthesis of L1 on L2 and L2 on L3. Lumbar lordosis is otherwise well-maintained. No compression deformity of the vertebral bodies. 15 mm hemangioma noted within the T12 vertebral body. SPINAL CORD: Normal. Normal position and signal intensity of the conus medullaris. SOFT TISSUES: Normal. DISCS/SPINAL CANAL/NEURAL FORAMINA: T12-L1: Moderate disc space narrowing and prominent circumferential disc bulging, ligamentous hypertrophy and facet arthropathy results in mild spinal and neural foraminal stenoses. L1-L2: Prominent disc space narrowing with Modic type II endplate changes. Prominent disc osteophyte complex, ligamentous hypertrophy and facet arthropathy results in mild spinal stenosis and moderate neural foraminal narrowing. L2-L3: Prominent disc space narrowing with Modic type II endplate changes. Right central disc protrusion, ligamentous hypertrophy and facet arthropathy results in moderate spinal stenosis and moderate left and moderate to severe right neural foraminal stenoses. L3-L4: Prominent disc space narrowing with Modic type II endplate changes. Broad-based disc herniation, ligamentous hypertrophy and facet arthropathy results in moderate to severe spinal stenosis and moderate to severe right and moderate left neural foraminal stenoses. L4-L5: Moderate disc space narrowing with Modic type II endplate changes. Broad-based disc herniation, ligamentous hypertrophy and facet arthropathy results in severe spinal stenosis and severe bilateral neural foraminal stenoses. L5-S1: No significant disc space narrowing. Broad-based disc protrusion and facet arthropathy result in moderate bilateral neural foraminal stenosis. No significant spinal stenosis. 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 Electronically Signed: Denzel Thomas MD at 10:34 EDT , CC: Dr. Rd Mendez MD; Dr. Abhishek Foy MD Referral And Information Aide: Signed Normal [facility] L/S Spine Min 4 Viewson 09-15 L/S Spine Min 4 Views [facility] [address] [place] [address] L/S Spine Min 4 Views MR#: [id number] Acct: [id number] Name: STERLING VALDES Rep #: [id number] : 1935 F 88 From: Ilya packer MD PCP: Dr. Abhishek Foy MD Status: DEP AMB Study: L/S Spine Min 4 Views Date of Exam: 10/07/23 Exam# [id number] Ordering Dr: Rain Rodriguez [id number] INDICATION: Low back pain -- Please do upright AP, lateral, flexion, extension EXAMINATION/TECHNIQUE : X-RAY - XR Spine Lumbar Min 4 Views COMPARISON: Prior study dated: 07/07/2022 __ FINDINGS: VERTEBRAE: Preserved vertebral body height. No fracture. Grade 1 anterolisthesis of L4 on L5, unchanged. Preservation of the normal lumbar lordosis. Diffuse facet arthropathy. Levoscoliosis centered at L3. This is progressed from the 2022 study mildly. No evidence of instability on flexion and extension. DISCS: Diffuse disc space narrowing with endplate osteophytes throughout. INCLUDED ABDOMEN: Included bowel gas pattern is non-obstructive. RAD/L/S Spine Min 4 Views IMPRESSION: Moderate to severe degenerative changes throughout the lumbar spine with mild progression from prior. No evidence of instability. Electronically Signed: Ilya Kwok MD at 14:55 EDT Reading Location ID and State: [facility] / [place] Tel , Service support , CC: KELSI Armando; Dr. Abhishek Foy MD Referral And Information Aide: Signed Normal [facility] Orthopedic Visit Reporton Orthopedic Visit Report [facility] [address] [place] [address] [address] [place] [address] OFFICE VISIT Date of Service: 10/07/23 MR#: [id number] Acct: [id number] Name: STERLING VALDES Rep #: [id number] : 1935 Provider: Dr. Rd Mendez MD Age/Sex: 88/F Location: [facility] [place] Status: Signed Intake Vital Signs 07/05/23 12:09 10/07/23 14:09 Height 5 ft 3 in 5 ft 3 in Weight: 148 lb BMI 26.2 Intake Visit Reasons: LUMBAR SPINE Chief Complaint: lumbar spine Allergies No Known Allergies Allergy (Verified 10/07/23 14:09) Medications ???Medication ???Instructions ???Recorded ???Confirmed ???Type cholecalciferol (vitamin D3) 25 25 mcg PO DAILY 09/19/19 10/07/23 History mcg (1,000 unit) capsule acetaminophen 500 mg tablet 1,000 mg PO TID PRN 06/16/23 10/07/23 History multivitamin with calcium carb and tab PO 07/05/23 10/07/23 History iron tablet denosumab 60 mg/mL subcutaneous 60 mg subcut [id number] #1 mL 09/19/23 10/07/23 Rx syringe (Prolia) tramadol 50 mg tablet 50 mg PO BID PRN 10/07/23 10/07/23 History Have you fallen in the past year?: No PFSH Medical History Hyperkalemia Hypercalcemia Electrolyte abnormality Grief reaction Contusion of left hip Acute lumbar myofascial strain Osteoarthritis COVID-19 Fractured elbow Insomnia History of skin cancer of unknown type Hearing loss History of vaginal delivery Osteopenia Carpal tunnel syndrome Arthritis Surgical History History of carpal tunnel release History of oral surgery History of bilateral cataract extraction Family History Father Cancer Brother Cancer Thyroid disorder Son Colon cancer Seizures Daughter Thyroid disorder Social History Smoking Status: Former smoker quit date: 02/14/73 Tobacco: How many years used: 15 alcohol intake: current alcohol intake frequency: holidays/special occasions only Alcohol type: wine substance use type: does not use what type of physical activity do you participate in: aerobics and weight training frequency: 1-2 times per week HPI LUMBAR SPINE Details: This documentation accurately reflects the service provided and the decisions made by me, Dr. Rd Mendez MD 10/07/23 4167. Part of today???s visit was documented by Yamilet Waite LPN, acting as scribe. STERLING VALDES is a 88 year old F here today for initial evaluation of lumbar spine pain. She uses a cane to ambulate. She reports a fall 15 months ago when she got up at night and fell on her buttocks and landed on the carpeted floor. She was given prednisone after the fall which she reports was helpful. She reports the pain has been getting progressively worse over the last few months. She has been seeing Dr. Maloney for pain management. She has received 3 injections from him and reports only one was helpful. She has also completed PT. She denies numbness and tingling into her legs. Pt does ambulate with a cane. Pain goes below her left knee on the lateral side. No numbness or tingling. Denies right sided pain. She takes 3 tramadol a day. Ortho Exam General General: Yes no acute distress Neurologic: Yes alert and Yes oriented x3 Spine SPINE TESTING CERVICAL THORACIC LUMBAR Musculoskeletal Strength 0=absent - 5=normal Details: Neurological exam of the lower extremities shows 5x5 power. Normal sensations across all dermatomes. No hyperreflexia. No midline or paraspinal tenderness. Figure 4 negative. Coding Level of Care Code Off vis,est,level 4 Diagnoses Other secondary scoliosis, lumbar region M41.56 Scoliosis type: other secondary scoliosis Lumbar radiculopathy M54.16 Spinal stenosis of lumbar region with neurogenic claudication M48.062 Spondylolisthesis, lumbar region M43.16 Time Spent (min) 35 Assessment and Plan Assessment and Plan (1) Lumbar scoliosis: Status: Acute Qualifiers: Scoliosis type: other secondary scoliosis Qualified Code(s): M41.56 - Other secondary scoliosis, lumbar region (2) Lumbar radiculopathy: Status: Acute (3) Spinal stenosis of lumbar region with neurogenic claudication: Status: Acute (4) Spondylolisthesis, lumbar region: Status: Acute Orders: Orders L/S Spine Min 4 Views 10/07/23 KELSI Armando M54.50 - Low back pain, unspecified Spine Lumbar (Routine) 10/07/[address] Dr[address] Mendez MD M43.06 - Spondylolysis, lumbar region Plan Obtained and reviewed xrays today with the patient. L4-L5 spondylolisthesis with instability seen in flexion and extension views. Also reviewed portions of the pelvic MRI. 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 Normal [facility] Comprehensive Metabolic Prof ilon 10-03-2023 Albumin [Mass/Vol] 3.6 g/dL Normal 3.2-5.0 [facility] Comment on above: Performed By: #### L 509.1000, L500.4050 #### [facility] [address] [place], [address] Albumin/Globulin [Mass ratio] 1.2 {ratio} Normal 0.9-2.4 [facility] Comment on above: Performed By: #### L 509.1000, L500.4050 #### [facility] [address] [place], [address] ALK P 52 U/L Normal 45-117 [facility] Comment on above: Performed By: #### L 509.1000, L500.4050 #### [facility] [address] [place], [address] ALT [Catalytic activity/Vol] 35 U/L Normal 13-56 [facility] Comment on above: Performed By: #### L 509.1000, L500.4050 #### [facility] [address] [place], [address] AST [Catalytic activity/Vol] 28 U/L Normal 15-37 [facility] Comment on above: Performed By: #### L 509.1000, L500.4050 #### [facility] [address] [place], [address] Bilirubin [Mass/Vol] 0.40 mg/dL Normal 0.20-1.00 [facility] Comment on above: Result Comment: For patients on eltrombopag therapy, use of Dimension [place] TBIL is not recommended. Performed By: #### L 509.1000, L500.4050 #### [facility] [address] [place], [address] BUN/CRE 13.1 RATIO Normal 10-20 [facility] Comment on above: Performed By: #### L 509.1000, L500.4050 #### [facility] [address] [place], [address] CA,Total 10.2 mg/dL High 8.5-10.1 [facility] Comment on above: Performed By: #### L 509.1000, L500.4050 #### [facility] [address] [place], [address] Chloride [Moles/Vol] 100 mmol/L Normal 98-107 [facility] Comment on above: Performed By: #### L 509.1000, L500.4050 #### [facility] [address] [place], [address] CO2 [Moles/Vol] 27.0 mmol/L Normal 21.0-32.0 [facility] Comment on above: Performed By: #### L 509.1000, L500.4050 #### [facility] [address] [place], [address] Creatinine [Mass/Vol] 0.69 mg/dL Normal 0.55-1.02 [facility] Comment on above: Result Comment: The validity of the calculated GFR GFRAA in patients over 70 years has not been determined. Clinical correlation is essential. Performed By: #### L 509.1000, L500.4050 #### [facility] [address] [place], [address] EST GFR - AA 104 mL/min Normal >60 [facility] Comment on above: Result Comment: Afri can Qatari GFR Calc Performed By: #### L 509.1000, L500.4050 #### [facility] [address] [place], [address] GAP 5 Normal 5-15 [facility] Comment on above: Performed By: #### L 509.1000, L500.4050 #### [facility] [address] [place], [address] GFR/1.73 sq M.predicted among non-blacks MDRD (S/P/Bld) [Vol rate/Area] 86 mL/min/{1.73_m2} Normal >60 [facility] Comment on above: Result Comment: Non- GFR Calc Performed By: #### L 509.1000, L500.4050 #### [facility] [address] [place], [address] Globulin (S) [Mass/Vol] 3.1 g/dL Normal 2.2-4.[address] [facility] Comment on above: Performed By: #### L 509.1000, L500.4050 #### [facility] [address] [place], [address] Glucose [Mass/Vol] 125 mg/dL High 74-106 [facility] Comment on above: Result Comment: Fast ing Glucose result from 100 to 125 mg/dL suggests IMPAIRED HOMEOSTASIS per A.D.A. criteria. Performed By: #### L 509.1000, L500.4050 #### [facility] [address] [place], [address] Potassium [Moles/Vol] 4.7 mmol/L Normal 3.5-5.1 [facility] Comment on above: Performed By: #### L 509.1000, L500.4050 #### [facility] [address] [place], [address] Sodium [Moles/Vol] 132 mmol/L Low 136-145 [facility] Comment on above: Performed By: #### L 509.1000, L500.4050 #### [facility] [address] [place], [address] T PROT 6.7 g/dL Normal 6.4-8.2 [facility] Comment on above: Performed By: #### L 509.1000, L500.4050 #### [facility] [address] [place], [address] Urea nitrogen [Mass/Vol] 9 mg/dL Normal 7-18 [facility] Comment on above: Performed By: #### L 509.1000, L500.4050 #### [facility] [address] [place], [address] Office Visit Reporton 2023 Office Visit Report [facility] [address] [place] [address] OFFICE VISIT Date of Service: 10/03/23 MR#: [id number] Acct: [id number] Patient: STERLING VALDES Rep #: [id number] : 1935 Provider: EVELIO NURSE Age/Sex: 88/F Location[place] [facility] [place] Status: Signed Intake Vital Signs 07/05/23 12:09 Height 5 ft 3 in Intake Visit Reasons: PROLIA Chief Complaint: Prolia Allergies No Known Allergies Allergy (Verified 07/05/23 12:05) Have you fallen in the past year?: No Office Procedures Injections Procedure performed by: Georgia Vizcaino Lot number: [id number] Dual Rate Dealer: [employer] date: 04/13/26 Dose of injection: 1.0 ml Site of injection: Sub-Q (Left arm ) Medication Given: Yes Is this a patient provided medication?: No Additional Details: BUY AND BILL DX:OSTEOPOROSIS Office Meds Prolia 60 mg/mL subcutaneous syringe Performing Provider: Abhishek Foy MD Performing Location: [facility] Administered by: Georgia Vizcaino LPN on 10/03/23 10:18 Dose Route Admin Location Dispensed Lot Number Expiration Date [facility] Justino ufacturer 60 mg subcut LEFT ARM 1 mL [id number] 04/13/26 12501-399-63 [employer] Comments: BUY AND BILL DX:OSTEOPOROSIS Assessment and Plan Assessment and Plan (1) Osteoporosis: Status: Chronic Qualifiers: Osteoporosis type: age-related Presence of current pathological fracture: without current pathological fracture Qualified Code(s): M81.0 - Age-related osteoporosis without current pathological fracture Orders: Orders Prolia Injection Today M81.0 - Age-related osteoporosis without current pathological fracture Clinical Quality Measures Falls Risk Screening/Assistive Devices Have you fallen in the past year?: No 10/03/23 1710 Date Abhishek Foy MD Cosigner Signature: Date (if applicable) CC: Normal [facility] PTHINon 10-03-2023 PTH 68.3 pg/mL Normal 18.4-80.1 [facility] Comment on above: Performed By: #### L 509.1000, L500.4050 #### [facility] [address] [place], [place], [address] Dexa Bone Density Studyon Dexa Bone Density Study [facility] [address] [place], [place] [address] Dexa Bone Density Study MR#: [id number] Acct: [id number] Name: STERLING VLADES Rep #: [id number] : 1935 F 88 From: Percy waite MD PCP: Dr. Abhishek Foy MD Status: [facility] Study: Dexa Bone Density Study Date of Exam: 09/06/23 Exam# [id number] Ordering Dr: Abhishek Foy MD [id number] STUDY: DUAL ENERGY X-RAY ABSORPTIOMETRY / DXA REASON FOR EXAM: Female, 88 years old. Post- Menopausal TECHNIQUE: Bone Mineral Density (BMD) measurements of lumbar spine and bilateral hips were obtained. COMPARISON: Comparison is made with prior study of May 07, 2021. FINDINGS: Lumbar Spine (L1-L4): g/cm2 (1.217) / T-score (1.5) / Z-score (4.4) Findings are suggestive of normal bone density with a low fracture risk. Left Femur Total: g/cm2 (0.727) / T-score (-1.8) / Z-score (0.6) Left Femoral Neck: g/cm2 (0.710) / T-score (-1.2) / Z-score (1.3) Right Femur Total: g/cm2 (0.700) / T-score (-2.0) / Z-score (0.4) Right Femoral Neck: g/cm2 (0.760) / T-score (-0.8) / Z-score (1.7) The T-Scores on the most recent prior examination were: Lumbar Spine (L1-L4): There has been worsening of bone density since the previous examination. Left Femur Total: which represents an improvement of 1.2%. Right Femur Total: which represents a worsening of 3.8%. BD/Dexa Bone Density Study IMPRESSION: The patient is considered osteopenic as outlined below according to World Ag[employer] Organization (WHO) criteria with a moderate fracture risk. There has been worsening of bone density since the previous examination. Reference Information: The T-score is the number of standard deviations above or below the standard which is normal for young adults at their peak bone mineral density. The World Health Organization (WHO) interprets the T-scores as follows: Above -1 Normal bone density Between -1 and -2.5 Osteopenia Equal to / or below -2.5 Osteoporosis As a practical clinical guideline, osteopenia may be graded as follows: Mild -1 through -1.5 Moderate -1.6 through -2.0 Severe -2.1 through -2.4 The Z-score is the number of standard deviations above or below age-matched controls. A Z-score of less than -1.5 would be considered abnormal. References: 1. NIH Osteoporosis and Related Bone Diseases www osteo.org 2. International Society for Clinical Densitometry www iscd.org 3. National Osteoporosis Foundation www nof.org Electronically Signed: Percy Lugo MD at 9:37 EDT , CC: Dr. Abhishek Foy MD Referral And Information Aide: Signed [facility] [place] [facility] [place] Normal [facility] Comment on above: Order Comment: [id number] TRAMADOL Result Comment: TEST RESULTS LIMITS Tramadol, Urine Tramadol Positive Hhavmn=519 Tramadol Conf, [place], [place] 26[address] ng/mL Vurzas=058 Tramadol detected; this finding can be consistent with use of medications that include Ultram, Topalgic, Tradol, Zydol, or generic formulations. Drugs listed are chemical sales representative of common sources of the compound detected and are not intended to include all possible sources. Please Note: Drug test results should be interpreted in the context of clinical information. Patient metabolic variables, specific drug chemistry, and specimen characteristics can affect test outcome. Technical consultation is available if a test result is inconsistent with an expected outcome. Email: [email or web address] TESTING PERFORMED AT [facility]. ORIGINAL REPORT ON FILE IN LAB CONTAINS ADDITIONAL TEST SITE INFORMATION. Performed By: #### L 801.1541, L505.5000 #### [facility] [address] [place], [address] Urine Drug Screen (VISTA)on 07-30-2023 AMPHETAMINES Negative Normal <1000 ng/mL [facility] Comment on above: Order Comment: MEDTO X Performed By: #### L 801.1541, L505.5000 #### [facility] [address] [place], [address] BARBITIURATES Negative Normal < 200 ng/mL [facility] Comment on above: Order Comment: MEDTO X Performed By: #### L 801.1541, L505.5000 #### [facility] [address] [place], [address] BENZODIAZIPINE Negative Normal < 200 ng/mL [facility] Comment on above: Order Comment: MEDTO X Performed By: #### L 801.1541, L505.5000 #### [facility] [address] [place], [address] COCAINE Negative Normal < 300 ng/mL [facility] Comment on above: Order Comment: MEDTO X Performed By: #### L 801.1541, L505.5000 #### [facility] [address] [place], [address] ECSTACY Negative Normal < 500 ng/mL [facility] Comment on above: Order Comment: MEDTO X Performed By: #### L 801.1541, L505.5000 #### [facility] [address] [place], [address] METHADONE Negative Normal < 300 ng/mL [facility] Comment on above: Order Comment: MEDTO X Performed By: #### L 801.1541, L505.5000 #### [facility] [address] [place], [address] OPIATES Negative Normal < 300 ng/mL [facility] Comment on above: Order Comment: MEDTO X Performed By: #### L 801.1541, L505.5000 #### [facility] [address] [place], [address] PCP Negative Normal < 25 ng/mL [facility] Comment on above: Order Comment: MEDTO X Performed By: #### L 801.1541, L505.5000 #### [facility] [address] [place], [address] THC Negative Normal < 50 ng/mL [facility] Comment on above: Order Comment: MEDTO X Performed By: #### L 801.1541, L505.5000 #### [facility] [address] [place], [address] VISTA UDS PH 6 Normal [facility] Comment on above: Order Comment: MEDTO X Performed By: #### L 801.1541, L505.5000 #### [facility] [address] [place], [address] Basic Metabolic Profile (BMP )on 07-29-2023 BUN/CRE 18.6 RATIO Normal 10-20 [facility] Comment on above: Performed By: #### L 506.1000, L509.1000, L500.2500 ####[facility] [address] [place], [address] CA,Total 10.0 mg/dL Normal 8.5-10.1 [facility] Comment on above: Performed By: #### L 506.1000, L509.1000, L500.2500 ####[facility] [address] [place], [address] Chloride [Moles/Vol] 96 mmol/L Low 98-107 [facility] Comment on above: Performed By: #### L 506.1000, L509.1000, L500.2500 ####[facility] [address] [place], [address] CO2 [Moles/Vol] 28.0 mmol/L Normal 21.0-32.0 [facility] Comment on above: Performed By: #### L 506.1000, L509.1000, L500.2500 ####[facility] [address] [place], [address] Creatinine [Mass/Vol] 0.54 mg/dL Low 0.55-1.02 [facility] Comment on above: Result Comment: The validity of the calculated GFR GFRAA in patients over 70 years has not been determined. Clinical correlation is essential. Performed By: #### L 506.1000, L509.1000, L500.2500 ####[facility] [address] [place], [address] EST GFR - AA 138 mL/min Normal >60 [facility] Comment on above: Result Comment: Afri can Qatari GFR Calc Performed By: #### L 506.1000, L509.1000, L500.2500 ####[facility] [address] [place], [address] GAP 6 Normal 5-15 [facility] Comment on above: Performed By: #### L 506.1000, L509.1000, L500.2500 ####[facility] [address] [place], [address] GFR/1.73 sq M.predicted among non-blacks MDRD (S/P/Bld) [Vol rate/Area] 114 mL/min/{1.73_m2} Normal >60 [facility] Comment on above: Result Comment: Non- GFR Calc Performed By: #### L 506.1000, L509.1000, L500.2500 ####[facility] [address] [place], [address] Glucose [Mass/Vol] 93 mg/dL Normal 74-106 [facility] Comment on above: Performed By: #### L 506.1000, L509.1000, L500.2500 ####[facility] [address] [place], [address] Potassium [Moles/Vol] 4.2 mmol/L Normal 3.5-5.1 [facility] Comment on above: Performed By: #### L 506.1000, L509.1000, L500.2500 ####[facility] [address] [place], [address] Sodium [Moles/Vol] 130 mmol/L Low 136-145 [facility] Comment on above: Performed By: #### L 506.1000, L509.1000, L500.2500 ####[facility] [address] [place], [address] Urea nitrogen [Mass/Vol] 10 mg/dL Normal 7-18 [facility] Comment on above: Performed By: #### L 506.1000, L509.1000, L500.2500 ####[facility] [address] [place], [address] PTHINon 07-29-2023 PTH 86.8 pg/mL High 18.4-80.1 [facility] Comment on above: Performed By: #### L 506.1000, L509.1000, L500.2500 ####[facility] [address] [place], [address] Vitamin D,25 Hydroxyon 07-28 Vitamin D 25-OH 43.8 ng/mL Normal [facility] Comment on above: Result Comment: Sarai min D 25(OH) Status Range Deficiency <20 ng/mL (50nmol/L) Insufficiency 20 - 30 ng/mL (50 - 75 nmol/L) Sufficiency 30 - 100 ng/mL (75 - 250 nmol/L) Toxicity >100 ng/mL (>250 nmol/L) Performed By: #### L 506.1000, L509.1000, L500.2500 ####[facility] [address] [place], [address] Absolute lymphocyte countOrd ered By: abad Foy on 06-16-2023 Lymphocytes Auto (Unsp spec) [#/Vol] 1.29 10*3/uL 0.83-4.51 [facility] Automated lymphocyte count a s percentage of total leukocytesOrdered By: Abhishek Foy on 06-16-2023 Lymphocytes/100 WBC Auto (Unsp spec) 19.3 % 19-41 [facility] Basophil percentageOrdered B y: Bethsanthosh Foy on 06-16-2023 Basophils/100 WBC (Bld) 0.4 % 0-1 [facility] Bilirubin [Mass/Vol] 0.40 mg/dL 0.20-1.00 [facility] Comment on above: For patients on eltr ombopag therapy, use of Dimension [place] TBIL is not recommended. Chloride [Moles/Vol] 102 mmol/L 98-107 [facility] Eosinophils/100 WBC (Bld) 0.6 % 0-5 [facility] Glucose [Mass/Vol] 93 mg/dL 74-106 [facility] Hemoglobin (Bld) [Mass/Vol] 13.7 g/dL 12.0-15.0 [facility] Monocytes/100 WBC (Bld) 7.8 % 0-10 [facility] Neutrophils (Bld) [#/Vol] 4.8 10*3/uL 2.0-7.7 [facility] Neutrophils/100 WBC (Bld) 71.5 % 47-70 [facility] Potassium [Moles/Vol] 5.4 mmol/L 3.5-5.1 [facility] Protein [Mass/Vol] 6.9 g/dL 6.4-8.2 [facility] Sodium [Moles/Vol] 135 mmol/L 136-145 [facility] WBC (Bld) [#/Vol] 6.7 10*3/uL 4.4-11.0 [facility] Determination of erythrocyte mean corpuscular volume (MCV)Ordered By: Abhishek Foy on 06-16-2023 MCV (RBC) [Entitic vol] 99.5 fL 81-99 [facility] Erythrocyte distribution wid th ratioOrdered By: [facility] Lozanob[facility]ca on 06-16-2023 Erythrocyte distribution width (RBC) [Ratio] 13.5 % 11.6-14.6 [facility] Erythrocyte distribution wid th standard deviationOrdered By: [facility] Blakebianca on 06-16-2023 Erythrocyte distribution width (RBC) [Entitic vol] 49.6 fL 35.1-43.9 [facility] Hematocrit Auto (Bld) [Volum e fraction]Ordered By: [facility] Blakebianca on 06-16-2023 Hematocrit (Bld) [Volume fraction] 42.7 % 37-47 [facility] Immature granulocytes/100 WB C Auto (Bld)Ordered By: [facility] Blakebianca on 06-16-2023 Immature granulocytes/100 WBC (Bld) 0.400 % 0.0-0.9 [facility] Comment on above: IG% - Immature Granu locytes (promyelocytes, myelocytes and metamyelocytes) > 1% indicates that a LEFT SHIFT is Present. Laboratory - Chemistry and C hemistry - challengeOrdered By: [facility] Lozanobianca on 06-16-2023 Albumin/Globulin [Mass ratio] 1.3 {ratio} 0.9-2.4 [facility] ALP [Catalytic activity/Vol] 46 U/L 45-117 [facility] ALT [Catalytic activity/Vol] 27 U/L 13-56 [facility] CO2 [Moles/Vol] 29.0 mmol/L 21.0-32.0 [facility] Globulin (S) [Mass/Vol] 3.0 g/dL 2.2-4.2 [facility] Urea nitrogen/Creatinine [Mass ratio] 19.5 mg/mg 10-20 [facility] - Hematology and Cell countsOrdered By: Abhishek Foy on 06-16-2023 MCH (RBC) [Entitic mass] 31.9 pg 27.0-32.0 [facility] MCHC (RBC) [Mass/Vol] 32.1 g/dL 32-36 [facility] Nucleated RBC/100 WBC (Bld) [Ratio] 0 % 0-5 [facility] Platelet mean volume (Bld) [Entitic vol] 8.4 fL 6.2-12.0 [facility] Platelets (Bld) [#/Vol] 230 10*3/uL 150-450 [facility] No Panel InformationOrdered By: Abhishek Foy on 06-16-2023 Estimated GFR (MDRD) Amer 108 mL/min >60 [facility] Comment on above: GFR Calc Estimated GFR (MDRD) Non-Af Amer 89 mL/min >60 [facility] Comment on above: Non- GFR Calc Vitamin D 25-Hydroxy 53.7 ng/mL [facility] Comment on above: Vitamin D 25(OH) Sta tus Range Deficiency <20 ng/mL (50nmol/L) Insufficiency 20 - 30 ng/mL (50 - 75 nmol/L) Sufficiency 30 - 100 ng/mL (75 - 250 nmol/L) Toxicity >100 ng/mL (>250 nmol/L) RBC Auto (Bld) [#/Vol]Ordere d By: Abhishek Foy on 06-16-2023 RBC (Bld) [#/Vol] 4.29 10*6/uL 4.2-5.4 [facility] Serum or plasma calcium charmaine urement (mass/volume)Ordered By: Abhishek Foy on 06-16-2023 Calcium [Mass/Vol] 11.0 mg/dL 8.5-10.1 [facility] Serum or plasma creatinine m easurement (mass/volume)Ordered By: Abhishek Foy on 06-16-2023 Creatinine [Mass/Vol] 0.67 mg/dL 0.55-1.02 [facility] Comment on above: The validity of the calculated GFR & GFRAA in patients over 70 years has not been determined. Clinical correlation is essential. Serum or plasma urea nitroge n measurement (mass/volume)Ordered By: Abhishek Foy on 06-16-2023 Urea nitrogen [Mass/Vol] 13 mg/dL 7-18 [facility] Thin prep Papanicolaou smear with manual screeningOrdered By: Abhishek Foy on 06-16-2023 Thin prep Papanicolaou smear with manual screening 3.9 g/dL 3.2-5.0 [facility] Thin prep Papanicolaou smear with manual screening 20 U/L 15-37 [facility] Thin prep Papanicolaou smear with manual screening 4 5-15 [facility] Absolute lymphocyte countOrd ered By: Dr. Foy on 05-03-2022 Lymphocytes Auto (Unsp spec) [#/Vol] 1.07 10*3/uL 0.83-4.51 [facility] Basophil percentageOrdered B y: Dr. Foy on 05-03-2022 Basophils/100 WBC (Bld) 1.0 % 0-[address] [facility] Bilirubin [Mass/Vol] 0.40 mg/dL 0.20-1.00 [facility] Comment on above: For patients on eltr ombopag therapy, use of Dimension [place] TBIL is not recommended. Chloride [Moles/Vol] 101 mmol/L 98-107 [facility] Eosinophils/100 WBC (Bld) 2.4 % 0-5 [facility] Glucose [Mass/Vol] 111 mg/dL 74-106 [facility] Comment on above: Fasting Glucose resu lt from 100 to 125 mg/dL suggests IMPAIRED HOMEOSTASIS per A.D.A. criteria. Neutrophils (Bld) [#/Vol] 2.6 10*3/uL 2.0-7.7 [facility] Neutrophils/100 WBC (Bld) 61.9 % 47-70 [facility] Potassium [Moles/Vol] 4.0 mmol/L 3.5-5.1 [facility] Protein [Mass/Vol] 6.8 g/dL 6.4-8.2 [facility] Sodium [Moles/Vol] 137 mmol/L 136-145 [facility] WBC (Bld) [#/Vol] 4.1 10*3/uL 4.4-11.0 [facility] Blood erythrocytes count (nu mber/volume)Ordered By: Dr. Foy on 05-03-2022 RBC (Bld) [#/Vol] 4.55 10*6/uL 4.2-5.4 [facility] Blood hemoglobin measurement (mass/volume)Ordered By: Dr. Foy on 05-03-2022 Hemoglobin (Bld) [Mass/Vol] 14.2 g/dL 12.0-15.0 [facility] Blood lymphocytes/100 leukoc ytesOrdered By: Dr. Foy on 05-03-2022 Lymphocytes/100 WBC (Bld) 26.0 % 19-41 [facility] Blood monocytes/100 leukocyt esOrdered By: Dr. Foy on 05-03-2022 Monocytes/100 WBC (Bld) 8.5 % 0-10 [facility] Blood platelet mean volumeOr dered By: Dr. Foy on 05-03-2022 Platelet mean volume (Bld) [Entitic vol] 9.4 fL 6.2-12.0 [facility] Determination of erythrocyte mean corpuscular volume (MCV)Ordered By: Dr. Foy on 05-03-2022 MCV (RBC) [Entitic vol] 98.2 fL 81-99 [facility] Hematocrit Auto (Bld) [Volum e fraction]Ordered By: Dr. Foy on 05-03-2022 Hematocrit (Bld) [Volume fraction] 44.7 % 37-47 [facility] Laboratory - Chemistry and C hemistry - challengeOrdered By: Dr. Foy on 05-03-2022 ALP [Catalytic activity/Vol] 54 U/L 45-117 [facility] ALT [Catalytic activity/Vol] 24 U/L 13-56 [facility] CO2 [Moles/Vol] 30.0 mmol/L 21.0-32.0 [facility] Globulin (S) [Mass/Vol] 3.2 g/dL 2.2-4.2 [facility] Urea nitrogen/Creatinine [Mass ratio] 15.0 mg/mg 10-20 [facility] Laboratory - Hematology and Cell countsOrdered By: Dr. Foy on 05-03-2022 Erythrocyte distribution width (RBC) [Entitic vol] 51.2 fL 35.1-43.9 [facility] Erythrocyte distribution width (RBC) [Ratio] 13.9 % 11.6-14.6 [facility] Immature granulocytes/100 WBC (Bld) 0.200 % 0.0-0.9 [facility] Comment on above: IG% - Immature Granu locytes (promyelocytes, myelocytes and metamyelocytes) > 1% indicates that a LEFT SHIFT is Present. MCH (RBC) [Entitic mass] 31.2 pg 27.0-32.0 [facility] Nucleated RBC/100 WBC (Bld) [Ratio] 0 % 0-5 [facility] MCHC Auto (RBC) [Mass/Vol]Or dered By: Dr. Foy on 05-03-2022 MCHC (RBC) [Mass/Vol] 31.8 g/dL 32-36 [facility] No Panel InformationOrdered By: Dr. Foy on 05-03-2022 Estimated GFR (MDRD) Amer 97 mL/min >60 [facility] Comment on above: GFR Calc Estimated GFR (MDRD) Non-Af Amer 80 mL/min >60 [facility] Comment on above: Non- GFR Calc Vitamin D 25-Hydroxy 50.2 ng/mL [facility] Comment on above: Vitamin D 25(OH) Sta tus Range Deficiency <20 ng/mL (50nmol/L) Insufficiency 20 - 30 ng/mL (50 - 75 nmol/L) Sufficiency 30 - 100 ng/mL (75 - 250 nmol/L) Toxicity >100 ng/mL (>250 nmol/L) Platelets bldOrdered By: Dr. Foy on 05-03-2022 Platelets (Bld) [#/Vol] 218 10*3/uL 150-450 [facility] Serum or plasma albumin charmaine urement (mass/volume)Ordered By: Dr. Foy on 05-03-2022 Albumin [Mass/Vol] 3.6 g/dL 3.2-5.0 [facility] Serum or plasma albumin/glob ulin mass ratioOrdered By: Dr. Foy on 05-03-2022 Albumin/Globulin [Mass ratio] 1.1 {ratio} 0.9-2.4 [facility] Serum or plasma calcium charmaine urement (mass/volume)Ordered By: Dr. Foy on 05-03-2022 Calcium [Mass/Vol] 10.2 mg/dL 8.5-10.1 [facility] Serum or plasma creatinine m easurement (mass/volume)Ordered By: Dr. Foy on 05-03-2022 Creatinine [Mass/Vol] 0.73 mg/dL 0.55-1.02 [facility] Comment on above: The validity of the calculated GFR & GFRAA in patients over 70 years has not been determined. Clinical correlation is essential. Serum or plasma urea nitroge n measurement (mass/volume)Ordered By: Dr. Foy on 05-03-2022 Urea nitrogen [Mass/Vol] 11 mg/dL 7-18 [facility] Thin prep Papanicolaou smear with manual screeningOrdered By: Dr. Foy on 05-03-2022 Thin prep Papanicolaou smear with manual screening 17 U/L 15-37 [facility] Thin prep Papanicolaou smear with manual screening 6 5-15 [facility] Laboratory - Microbiology an d Antimicrobial susceptibilityon 01-28-2022 SARS-CoV-2 (COVID-19) RNA DANIELLE+probe Ql (Unsp spec) Detected [facility] No Panel Informationon 01-28 Influenza Types A,B Rapid (Clinic) Not detected [facility] Absolute lymphocyte counton 05-04-2021 Lymphocytes Auto (Unsp spec) [#/Vol] 1.17 10*3/uL 0.83-4.51 [facility] Work Phone: Basophil percentageon 2021 Basophils/100 WBC (Bld) 0.7 % 0-1 [facility] Work Phone: Bilirubin [Mass/Vol] 0.40 mg/dL 0.20-1.00 [facility] Work Phone: Comment on above: For patients on eltr ombopag therapy, use of Dimension [place] TBIL is not recommended. Chloride [Moles/Vol] 102 mmol/L 98-107 [facility] Work Phone: Eosinophils/100 WBC (Bld) 3.8 % 0-5 [facility] Work Phone: Glucose [Mass/Vol] 141 mg/dL 74-106 [facility] Work Phone: Comment on above: Fasting Glucose resu lt greater than or equal to 126 mg/dL suggests DIABETES MELLITUS per A.D.A. criteria. Neutrophils (Bld) [#/Vol] 2.5 10*3/uL 2.0-7.7 [facility] Work Phone: Neutrophils/100 WBC (Bld) 59.4 % 47-70 [facility] Work Phone: Potassium [Moles/Vol] 4.6 mmol/L 3.5-5.1 [facility] Work Phone: Protein [Mass/Vol] 6.8 g/dL 6.4-8.2 [facility] Work Phone: Sodium [Moles/Vol] 136 mmol/L 136-145 [facility] Work Phone: WBC (Bld) [#/Vol] 4.2 10*3/uL 4.4-11.0 [facility] Work Phone: Blood erythrocytes count (nu mber/volume)on 05-04-2021 RBC (Bld) [#/Vol] 4.35 10*6/uL 4.2-5.4 [facility] Work Phone: Blood hemoglobin measurement (mass/volume)on 05-04-2021 Hemoglobin (Bld) [Mass/Vol] 13.6 g/dL 12.0-15.0 [facility] Work Phone: Blood lymphocytes/100 leukoc yteson 05-04-2021 Lymphocytes/100 WBC (Bld) 27.8 % 19-41 [facility] Work Phone: Blood monocytes/100 leukocyt eson 05-04-2021 Monocytes/100 WBC (Bld) 7.8 % 0-10 [facility] Work Phone: Blood platelet mean volumeon 05-04-2021 Platelet mean volume (Bld) [Entitic vol] 9.3 fL 6.2-12.0 [facility] Work Phone: Determination of erythrocyte mean corpuscular volume (MCV)on 05-04-2021 MCV (RBC) [Entitic vol] 96.1 fL 81-99 [facility] Work Phone: Hematocrit Auto (Bld) [Volum e fraction]on 05-04-2021 Hematocrit (Bld) [Volume fraction] 41.8 % 37-47 [facility] Work Phone: Laboratory - Chemistry and C hemistry - challengeon 05-04-2021 ALP [Catalytic activity/Vol] 55 U/L 45-117 [facility] Work Phone: ALT [Catalytic activity/Vol] 23 U/L 13-56 [facility] Work Phone: CO2 [Moles/Vol] 30.0 mmol/L 21.0-32.0 [facility] Work Phone: Globulin (S) [Mass/Vol] 3.0 g/dL 2.2-4.2 [facility] Work Phone: Urea nitrogen/Creatinine [Mass ratio] 17.8 mg/mg 10-20 [facility] Work Phone: Laboratory - Hematology and Cell countson 05-04-2021 Erythrocyte distribution width (RBC) [Entitic vol] 48.4 fL 35.1-43.9 [facility] Work Phone: Erythrocyte distribution width (RBC) [Ratio] 13.5 % 11.6-14.6 [facility] Work Phone: Immature granulocytes/100 WBC (Bld) 0.500 % 0.0-0.9 [facility] Work Phone: Comment on above: IG% - Immature Granu locytes (promyelocytes, myelocytes and metamyelocytes) > 1% indicates that a LEFT SHIFT is Present. MCH (RBC) [Entitic mass] 31.3 pg 27.0-32.0 [facility] Work Phone: Nucleated RBC/100 WBC (Bld) [Ratio] 0 % 0-5 [facility] Work Phone: MCHC Auto (RBC) [Mass/Vol]on 05-04-2021 MCHC (RBC) [Mass/Vol] 32.5 g/dL 32-36 [facility] Work Phone: No Panel Informationon 05-04 Estimated GFR (MDRD) Amer 97 mL/min >60 [facility] Work Phone: Comment on above: GFR Calc Estimated GFR (MDRD) Non-Af Amer 81 mL/min >60 [facility] Work Phone: Comment on above: Non- GFR Calc Vitamin D 25-Hydroxy 45.8 ng/mL [facility] Work Phone: Comment on above: Vitamin D 25(OH) Sta tus Range Deficiency <20 ng/mL (50nmol/L) Insufficiency 20 - 30 ng/mL (50 - 75 nmol/L) Sufficiency 30 - 100 ng/mL (75 - 250 nmol/L) Toxicity >100 ng/mL (>250 nmol/L) Platelets bldon 05-04-2021 Platelets (Bld) [#/Vol] 207 10*3/uL 150-450 [facility] Work Phone: Serum or plasma albumin charmaine urement (mass/volume)on 05-04-2021 Albumin [Mass/Vol] 3.8 g/dL 3.2-5.0 [facility] Work Phone: Serum or plasma albumin/glob ulin mass ratioon 05-04-2021 Albumin/Globulin [Mass ratio] 1.3 {ratio} 0.9-2.4 [facility] Work Phone: Serum or plasma calcium charmaine urement (mass/volume)on 05-04-2021 Calcium [Mass/Vol] 9.6 mg/dL 8.5-10.1 [facility] Work Phone: Serum or plasma creatinine m easurement (mass/volume)on 05-04-2021 Creatinine [Mass/Vol] 0.73 mg/dL 0.55-1.02 [facility] Work Phone: Comment on above: The validity of the calculated GFR & GFRAA in patients over 70 years has not been determined. Clinical correlation is essential. Serum or plasma urea nitroge n measurement (mass/volume)on 05-04-2021 Urea nitrogen [Mass/Vol] 13 mg/dL 7-18 [facility] Work Phone: Thin prep Papanicolaou smear with manual screeningon 05-04-2021 Thin prep Papanicolaou smear with manual screening 19 U/L 15-37 [facility] Work Phone: Thin prep Papanicolaou smear with manual screening 4 5-15 [facility] Work Phone: Whole blood hemoglobin A1c/t otal hemoglobin ratio (mass fraction)on 05-04-2021 HbA1c (Bld) [Mass fraction] 5.9 % 3.8-5.6 [facility] Work Phone: Comment on above: Normal < 5.7 % Predi abetic 5.7 - 6.4 % Diabetic >or= 6.5 % Please note range changes. Vital Signs Date Time Vital Sign Value Performing Clinician Faci lity 06-16-2023 13:22-040 Body height 160.[address] Abhishek Foy Work Phone: [facility] 06-16-2023 13:22-040 Body mass index (BMI) [Ratio] 26.7 kg/m2 Dr. Abhishek Foy Work Phone: [facility] 06-16-2023 13:22-040 Body temperature 97.2 [degF] Dr. Abhishek Foy Work Phone: [facility] 06-16-2023 13:22-0400 Body weight 68.[address] Abhishek Foy Work Phone: [facility] 06-16-2023 13:22-0400 Diastolic blood pressure 72 mm[Hg] Dr. Abhishek Foy Work Phone: [facility] 06-16-2023 13:22-0400 Heart rate 73 /min Dr. Abhishek Foy Work Phone: [facility] 06-16-2023 13:22-0400 Respiratory rate 16 /min Dr. Abhishek Foy Work Phone: [facility] 06-16-2023 13:22-0400 SaO2% (BldA) [Mass fraction] 98 % Dr. Abhishek Foy Work Phone: [facility] 06-16-2023 13:22-0400 Systolic blood pressure 122 mm[Hg] Dr. Abhishek Foy Work Phone: [facility] 07-07-2022 11:25-0400 Body temperature 98.6 [degF] Dr. Abhishek Foy Work Phone: [facility] 07-07-2022 11:25-0400 Diastolic blood pressure 80 mm[Hg] Dr. Abhishek Foy Work Phone: [facility] 07-07-2022 11:25-0400 Heart rate 76 /min Dr. Abhishek Foy Work Phone: [facility] 07-07-2022 11:25-0400 Respiratory rate 14 /min Dr. Abhishek Foy Work Phone: [facility] 07-07-2022 11:25-0400 Systolic blood pressure 120 mm[Hg] Dr. Abhishek Foy Work Phone: [facility] 05-03-2022 08:47-0400 Body height 160.[address] Abhishek Foy Work Phone: [facility] 05-03-2022 08:47-0400 Body temperature 95.5 [degF] Dr. Abhishek Foy Work Phone: [facility] 05-03-2022 08:47-0400 Diastolic blood pressure 84 mm[Hg] Dr. Abhishek Foy Work Phone: [facility] 05-03-2022 08:47-0400 Heart rate 84 /min Dr. Abhishek Foy Work Phone: [facility] 05-03-2022 08:47-0400 Respiratory rate 18 /min Dr. Abhishek Foy Work Phone: [facility] 05-03-2022 08:47-0400 SaO2% (BldA) [Mass fraction] 99 % Dr. Abhishek Foy Work Phone: [facility] 05-03-2022 08:47-0400 Systolic blood pressure 132 mm[Hg] Dr. Abhishek Foy Work Phone: [facility] 01-28-2022 16:02-0500 Body mass index (BMI) [Ratio] 28 kg/m2 Dr. Abhishek Foy Work Phone: [facility] 01-28-2022 16:02-0500 Body temperature 98.2 [degF] Dr. Abhishek Foy Work Phone: [facility] 01-28-2022 16:02-0500 Body weight 71.[address] Abhishek Foy Work Phone: [facility] 01-28-2022 16:02-0500 Diastolic blood pressure 52 mm[Hg] Dr. Abhishek Foy Work Phone: [facility] 01-28-2022 16:02-0500 Heart rate 103 /min Dr. Abhishek Foy Work Phone: [facility] 01-28-2022 16:02-0500 Respiratory rate 17 /min Dr. Abhishek Foy Work Phone: [facility] 01-28-2022 16:02-0500 SaO2% (BldA) [Mass fraction] 94 % Dr. Abhishek Foy Work Phone: [facility] 01-28-2022 16:02-0500 Systolic blood pressure 92 mm[Hg] Dr. Abhishek Foy Work Phone: [facility] 05-07-2021 14:10-0400 Body height 160.[address] Abhishek Foy Work Phone: [facility] Work Phone: 05-04-2021 10:09-0400 Body height 160.[address] Abhishek Foy Work Phone: [facility] Work Phone: 05-04-2021 10:09-0400 Body mass index (BMI) [Ratio] 28.9 kg/m2 Dr. Abhishek Foy Work Phone: [facility] Work Phone: 05-04-2021 10:09-0400 Body temperature 96.9 [degF] Dr. Abhishek Foy Work Phone: [facility] Work Phone: 05-04-2021 10:09-0400 Body weight 74.[address] Abhishek Foy Work Phone: [facility] Work Phone: 05-04-2021 10:09-0400 Diastolic blood pressure 60 mm[Hg] Dr. Abhishek Foy Work Phone: [facility] Work Phone: 05-04-2021 10:09-0400 Heart rate 80 /min Dr. Abhishek Foy Work Phone: [facility] Work Phone: 05-04-2021 10:09-0400 Respiratory rate 16 /min Dr. Abhishek Foy Work Phone: [facility] Work Phone: 05-04-2021 10:09-0400 SaO2% (BldA) [Mass fraction] 97 % Dr. Abhishek Foy Work Phone: [facility] Work Phone: 05-04-2021 10:09-0400 Systolic blood pressure 122 mm[Hg] Dr. Abhishek Foy Work Phone: [facility] Work Phone: Encounters Encounter Date Encounter Type Care Provider Facility Start: 04-05-2024 End: [facility] Start: 11-18-2023 End: 11-18-2023 [facility] Start: 11-12-2023 End: 11-12-2023 [facility] Start: 10-07-2023 End: 10-07-2023 [facility] Start: 10-03-2023 End: 10-03-2023 [facility] Start: 10-03-2023 End: 10-03-2023 [facility] Start: 09-06-2023 End: 09-06-2023 [facility] Start: 07-29-2023 End: 07-29-2023 ambulatory Minesh Pracindyon Facility:[facility] Start: 06-17-[address] Rosalinda Foy Work Phone: [facility]-Physical Therapy Work Phone: Start: 06-16-2023 End: 06-16-[address] Abhishek Foy Work Phone: [facility] Work Phone: Start: 06-16-2023 End: 06-16-[address] Abhishek Foy Work Phone: [facility] Work Phone: Start: 06-06-[address] Rosalinda Foy Work Phone: [facility] Work Phone: Start: 06-01-2023 End: 06-01-[address] Abhishek Foy Work Phone: [facility] Work Phone: Start: 06-01-2023 End: 06-01-[address] Abhishek Foy Work Phone: [facility]-Radiology, [facility] Work Phone: Start: 03-23-2023 End: 03-23-[address] Abhishek Foy Work Phone: [facility] Work Phone: Start: 12-09-2022 End: 12-09-2022 ambulatory [facility] Work Phone: Start: 12-09-2022 End: 12-09-2022 Discharged Recurring [facility] Work Phone: Start: 10-02-2022 End: 10-02-[address] Abhishek Foy Work Phone: [facility] Work Phone: Start: 10-02-2022 End: 10-02-[address] Abhishek Foy Work Phone: [facility]-MRI - [facility] Work Phone: Start: 09-13-2022 End: 09-13-[address] Abhishek Foy Work Phone: [facility] Work Phone: Start: 08-31-2022 End: 08-31-[address] Abhishek Foy Work Phone: [facility] Therapy Work Phone: Start: 07-29-2022 End: 07-29-[address] Abhishek Foy Work Phone: [facility] Work Phone: Start: 07-07-2022 End: 07-07-[address] Abhishek Foy Work Phone: [facility] Work Phone: Start: 05-03-2022 End: 05-03-[address] Abhishek Foy Work Phone: [facility] Work Phone: Start: 05-03-2022 End: 05-03-[address] Abhishek Foy Work Phone: [facility] Internal Medicine Start: 01-28-2022 End: 01-28-[address] Abhishek Foy Work Phone: [facility] Start: 05-07-2021 End: 05-07-[address] Abhishek Foy Work Phone: [facility]-Outpatient Bone Densitometry Start: 05-04-2021 End: 05-04-[address] Abhishek Foy Work Phone: [facility]-Laboratory, [facility] Procedures Date Procedure Procedure Detail Performing Clinician Start: 06-01-2023 Plain x-ray for bone length measurement Dr. Abhishek Foy Work Phone: Start: 10-02-[address] Rosalinda Foy Work Phone: Start: 09-13-2022 Plain x-ray of pelvi s and lower extremity Dr. Abhishek Foy Work Phone: Start: 07-07-2022 X-ray of lumbar spin e, two or three views Dr. Abhishek Foy Work Phone: Start: 07-07-2022 Plain x-ray of pelvi s and lower extremity Dr. Abhishek Foy Work Phone: Start: 05-07-2021 Dual energy X-ray absorptiometry Dr. Abhishek Foy Work Phone: Plan of Treatment Date Care Activity Detail Author Start: 03-23-2023 Patient referral [facility] Work Phone: Start: 07-29-2022 Patient referral [facility] Work Phone: Start: 05-04-2021 Patient referral [facility] Work Phone: DXA Bone [Mass/Area] Bone density [facility] Patient referral [facility] Work Phone: Immunizations Immunization Date Immunization Notes Care Provider Charo rivas 03-28-2020 Covid (Pfizer) Dr. Abhishek Foy Work Phone: [facility] 03-05-2020 Covid (Pfizer) Dr. Abhishek Foy Work Phone: [facility] 12-27-[address] Abhishek Foy Work Phone: [facility] 10-16-2019 influenza, injectabl e, quadrivalent, preservative free [facility] 10-16-2019 influenza, seasonal, injectable Dr. Abhishek Foy Work Phone: [facility] 10-16-[address] Abhishek Foy Work Phone: [facility] Payers Date Payer Category Payer Medicare [id number] 2023 Self-pay [id number] Medicare [id number] Unknown [id number] 2.16.8 [id number] Unknown [id number] 2.16.8 [id number] Unknown [id number] 2.16.8 [id number] Unknown [id number] 2.16.8 [id number] Unknown [id number] 2.16.8 [id number] Unknown [id number] 2.16.8 [id number] Unknown [id number] 2.16.8 [id number] Unknown [id number] 2.16.8 [id number] Unknown [id number] 2.16.8 [id number] Social History Date Type Detail Facility Start: 05-04-2021 End: 03-23-2023 Tobacco smoking status NHIS Unknown if ever smoked [facility] Start: 09-19-2019 Non-smoker [facility] Start: 1935 Sex Assigned At Female [facility] Clinical Notes 03-07-2020 to 02-28-2023 Note Date & Type Note Facility 02-28-2023 Discharge summary Note Date/Time February 28, 2023 7:55am [facility] [address] [place] [address] [address] [place] [address] / REHABILITATION SERVICES DISCHARGE SUMMARY MR#: [id number] Acct: [id number] Name: STERLING VALDES Rep #: [id number] : 1935 87 From: Giovanna Cota DPT, OCS, CSCS Referring Dr.: Dr. Luis Young, DO Status: REG RCR Insurance: [employer] SELF PAY INSURANCE Patient Information Patient Information: STERLING VALDES was seen in my office for initial evaluation on 11/08/22. The following Plan of Care was established for this patient: POC Established Initial Frequency: 2x /Week Initial Duration: 4-6 Weeks Anticipated Interventions Patient/Client Instruction: Educate patient on: Condition and Plan of Care For the Purpose of:: To decrease pain, To increase ROM, To improve nutrient delivery to tissue, To improve muscle performance and motor function, To increase tolerance to activity/condition/position, To improve ability of physical actions for home/community/work/leisure and To improve gait and locomotor functions Therapeutic Exercise to Include: Strength training, Postural training, Flexibilty training, Gait and locomotor training, Passive ROM, Active ROM and Dynamic Lumbar Stabilization For the Purpose of:: To decrease pain, To decrease swelling/inflammation, To increase ROM, To improve nutrient delivery to tissue, To improve ability of physical actions for home/community/work/leisure and To improve gait and locomotor functions Manual Therapy Techniques to Include: Passive ROM and Soft tissue mobilization For the Purpose of:: To decrease pain, To increase ROM and To improve nutrient delivery to tissue Thermo therapy (hot pack): Yes For the Purpose of:: To decrease pain and To improve nutrient delivery to tissue Last Seen Last Seen: This patient was last seen in our office 12/09/22. Pertinent comments regardingtheir Physical therapy will appear below: Pt seen 10 visits and was 42% better at last visit. He was to f/u a month laterto check progress but did not attend. At this point, It has been over two months and I will discontinue from my care. At this point I will be discontinuing this patient from physical therapy. I would be happy to see this patient again in the future if found appropriate by the physician. Thank you! Giovanna Cota, DORINA, OCS, CSCS Balance/Gait/Functional tests Balance/Special Test Scores Oswestry Low Back Score: 14 <Electronically signed by Giovanna Cipriano DPT, OCS, CSCS> 02/28/23 0755 CC: Dr. Abhishek Foy MD; Dr. Luis Young, DO ~ [facility] Signed [facility] Work Phone: 1(700) 735-803101-22-2021 NotePatient Outreach (COOCC3) STERLING VALDES ([id number]) 1935 F NFR Date Time Provider Department 03/07/20 [facility] During your visit today, we recorded the following information about you: Allergies As of Date: 03/07/2020 (No Known Allergies) Date Reviewed: 03/10/2017 Reviewed by: Kristine Chester LPN - Fully Assessed Order(s):SARS-COVID VACCINE 1ST DOSE APPT [[id number]] Order #: [id number] FUTURE Prescriptions as of 03/07/2020 Sig: * CHOLECALCIFEROL (VITAMIN D3) * Take one(1) tablet daily. * MULTIVITAMIN TABLET Take one(1) tablet daily. * CALCIUM 600 600 MG TABLET take one tablet daily * ASPIRIN 81 MG TABLET Take one (1) tablet daily . Problem List As Of Date 03/07/2020 Noted Resolved Osteopenia [M89.9, M94.9] FAMILY HX GI MALIGNANCY [Z80.0] 12/22/2006 SEBORRHEIC KERATOSIS INFLAMED [L82.0] 06/13/2007 SEBORRHEIC KERATOSIS NOS [L82.1] 06/13/2007 SOLAR LENGINES [L81.9] 06/13/2007 CHR SOLAR SKIN DAMAGE NOS [L57.8] 06/13/2007 Osteopenia [M85.80] Letter Text Encounter Status:Closed by EP[facility], PRODUSER on 03/10/20[facility] Chief complaint+Reason for visit Narrative* Chief Complaint COUGH/COVID TEST 1 Y FU Reason for Visit COVID-19 Insomnia Osteoarthritis Osteoporosis [facility] Work Phone: Evaluation note* Diagnosis Onset Date Resolution Status Carpal tunnel syndrome chron ic Insomnia chronic Osteoporosis chronic [facility] Work Phone: Evaluation note* Diagnosis Onset Date Resolution Status COVID-19 acute Insomnia chronic Osteoarthritis chronic Osteoporosis chronic [facility] Work Phone: Evaluation note* Diagnosis Onset Date Resolution Status Acute lumbar myofascial strain acute Contusion of left hip acute Acute lumbar myofascial strain acute Sacroiliac joint dysfunction of left side acute Sacroiliac joint dysfunction of left side acute [facility] Work Phone: Evaluation noteNo assessment information available [facility] Work Phone: Evaluation note* Diagnosis Onset Date Resolution Status Lumbar spinal stenosis acute Sacroiliac joint dysfunction of left side acute [facility] Work Phone: Evaluation note* Diagnosis Onset Date Resolution Status Lumbar spinal stenosis acute Sacroiliac joint dysfunction of left side acute Grief reaction acute DDD (degenerative disc disease), lumbar chronic Insomnia chronic Osteoporosis chronic [facility] Summary Purpose Family History No Family History Records Found Relationship Condition Age at Onset Recorded Date/T jeff father Malignant neoplasm Unknown brother Malignant neoplasm Unknown Disorder of thyroid Unknown son Malignant neoplasm of colon Unknown Seizure Unknown daughter Disorder of thyroid Unknown Advance Directives No Advanced Directives Records Found Advance Directive Response Recorded Date/ Time Living Will Yes September 19, 2019 11:08am Power of Commercial Real Estate Agent Yes September 18 11:08am Advance Directive Response Recorded Date/ Time Living Will Yes September 19, 2019 10:08am Power of Commercial Real Estate Agent Yes September 18 10:08am Chief Complaint and Reason for Visit Chief Complaint 1 Y FU Reason for Visit Carpal tunnel syndro me Insomnia Osteoporosis Chief Complaint 1 Y FU OSTEO Reason for Visit Carpal tunnel syndro me Insomnia Osteoporosis Chief Complaint POST FALL/LEFT HIP P AIN/LEFT SIDE PAIN LEFT HIP/LUMBAR XRAY LEFT HIP LUMBAR STRAIN RX HERE LEFT HIP Room 1 CONTUSION LT HIP ATTN: SACRUM, L SI JOINT Reason for Visit Acute lumbar myofasc ial strain Contusion of left hip Acute lumbar myofascial strain Sacroiliac joint dysfunction of left side Sacroiliac joint dysfunction of left side Chief Complaint DDD. RX HERE-- REQUE STED GIOVANNA Chief Complaint LEFT HIP LUMBAR RADICULOPATHY. RX HERE Reason for Visit Lumbar spinal stenos is Sacroiliac joint dysfunction of left side Chief Complaint LEFT HIP fu LUMBAR RADICULOPATHY. RX HERE Reason for Visit Lumbar spinal stenos is Sacroiliac joint dysfunction of left side Grief reaction DDD (degenerative disc disease), lumbar Insomnia Osteoporosis Additional Source Comments INFORMATION SOURCE (unrecogn ized section and content) DATE CREATED AUTHOR 03/02/2021 [facility] DATE CREATED AUTHOR AUTHOR'S ORGANIZ ATION 07/11/2024 [facility] Goals (unrecognized section and content) Goals may be documented in a n alternate sectionGoals may be documented in an alternate sectionGoals may be documented in an alternate sectionGoals may be documented in an alternate sectionGoals may be documented in an alternate sectionGoals may be documented in an alternate sectionGoals may be documented in an alternate section Care Teams (unrecognized sec tion and content) Team Status: Active Member Role Status Dates Dr. Abhishek Foy MD Family Provider Active Dr. Abhishek Foy MD Primary Care Provider Active Team Status: Inactive Member Role Status Dates Dr. Abhishek Foy MD Primary Care Ines pimentel, Attending Provider, Referring Provider Active Team Status: Inactive Member Role Status Dates Dr. Abhishek Foy MD Primary Care Provider, Refer ring Provider Active Rodney DOLAN, PA Attending Provider Active Team Status: Inactive Member Role Status Dates Dr. Abhishek Foy MD Primary Care Provider Active Rodney DOLAN, PA Attending Provider Active Team Status: Inactive Member Role Status Dates Dr. Abhishek Foy MD Primary Care Provider, Refer ring Provider Active Mart DOLAN, PA Attending Provider Active Team Status: Inactive Member Role Status Dates Dr. Abhishek Foy MD Primary Care Provider, Refer ring Provider Active Dr. Luis Young DO Attending Provider Active Team Status: Inactive Member Role Status Dates Dr. Abhishek Foy MD Primary Care Provider Active Dr. Jonathan Amaya MD Attending Provider Active Team Status: Inactive Member Role Status Dates Dr. Abhishek Foy MD Primary Care Provider Active Mart DOLAN PA Attending Provider, Referring Prov ider Active Team Status: Inactive Member Role Status Dates Dr. Abhishek Foy MD Primary Care Provider Active Dr. Luis Young DO Attending Provider, Referring Provider Active Team Status: Inactive Member Role Status Dates Dr. Abhishek Foy MD Primary Care Provider Active Dr. Luis Young DO Attending Provider Active Team Status: Active Member Role Status Dates Dr. Abhishek Foy MD Primary Care Provider Active Dr. Minesh Maloney MD Attending Provider, Referrin g Provider Active Team Status: Inactive Member Role Status Dates Dr. Abhishek Foy MD Primary Care Provider Active Dr. Richard Mckeon DPM Attending Provider, Referrin g Provider Active Team Status: Inactive Member Role Status Dates Dr. Abhishek Foy MD Primary Care Provider, Atten ding Provider Active FOR RECORDS PERTAINING TO PATIENTS WHO ARE OR HAVE BEEN ENROLLED IN A CHEMICAL DEPENDENCY/SUBSTANCEABUSE PROGRAM, SOME INFORMATION MAY BE OMITTED. This clinical summary was aggregated from multiple sources. Caution should be exercised in using it in the provision of clinical care. This summary normalizes information from multiple sources, and as a consequence, information in this document may materially change the coding, format and clinical context of patient data. In addition, data may be omitted in some cases. CLINICAL DECISIONS SHOULD BE BASED ON THE PRIMARY CLINICAL RECORDS. [employer] provides no warranty or guarantee of the accuracy or completeness of information in this document.
== END | disposition home or self-care (01) ==
LOC: LAB 14:49
PROVIDERS: PCP Internal Medicine; Referring Provider Physician Assistant; Visit Provider Physician Assistant
DX: E87.8 Other disorders of electrolyte and fluid balance, not elsewhere classified (principal); E83.52 Hypercalcemia; R63.4 Abnormal weight loss
CPT/HCPCS: 36415; 80053; 84443; 85025

== ENCOUNTER → 2024-08-07 | Outpatient (CLI) | payer MEDICARE, SELFPAY | END | disposition home or self-care (01) | LOC: MTLAB 08:48 | PROVIDERS: PCP Internal Medicine; Referring Provider Physician Assistant; Visit Provider Physician Assistant | DX: R63.4 Abnormal weight loss (principal) | CPT/HCPCS: 82274 ==

== ENCOUNTER 2024-09-26 11:22 | Emergency (ER) | payer MEDICARE, SELFPAY ==
[2024-09-26 11:23] VITALS: BP 150/64; PULSE 97; RESP 16; TEMP 36.6; O2SAT 82
--- NOTE | 2024-09-26 11:54 | CT_ITS ---
PROCEDURE: BRAIN/HEAD WITHOUT CONTRAST 09/26/2024 REASON FOR EXAM: FALL TECHNIQUE: BRAIN/HEAD WITHOUT CONTRAST Coronal and Sagittal reconstruction series were provided. One or more dose reduction techniques were used (e.g., Automated exposure control, adjustment of the mA and/or kV according to patient size, use of iterative reconstruction technique. RADIATION DOSE SUMMARY: CTDlvol: 44.99 mGy DLP: 829.85 mGycm COMPARISON: None FINDINGS: Brain: Low density in the periventricular white matter suggests mild chronic small vessel ischemic changes. CSF Spaces: Mild generalized cerebral atrophy Sinuses/Mastoids: Clear at visualized levels Bones: No skull fracture. CT/Brain/Head without Contrast IMPRESSION: CHRONIC CHANGES. NO ACUTE FINDINGS. Reading Location: [id number]
--- NOTE | 2024-09-26 11:54 | CT_ITS ---
PROCEDURE: SPINE CERVICAL WITHOUT CONTRAS 09/26/2024 REASON FOR EXAM: FALL TECHNIQUE: SPINE CERVICAL WITHOUT CONTRAS Coronal and Sagittal reconstruction series were provided. One or more dose reduction techniques were used (e.g., Automated exposure control, adjustment of the mA and/or kV according to patient size, use of iterative reconstruction technique. RADIATION DOSE SUMMARY: CTDlvol: 14.59 mGy DLP: 307 mGycm COMPARISON: None FINDINGS: Alignment: Normal alignment. Vertebrae: The vertebral heights are well-maintained. Soft Tissues: Calcification of the carotid bifurcations. Other: C1-2: No acute abnormality is seen. C2-3: Facet joint osteoarthritis and hypertrophy worse on the left side. Uncovertebral arthrosis. Mild right neural foraminal stenosis. C3-4: Moderate degree of disc space narrowing. Uncovertebral arthrosis. Bilateral neural foraminal stenosis. Moderate degree of bilateral neural foraminal stenosis. C4-5: Moderate degree of disc space narrowing. Facet joint osteoarthritis. Worse on the left side. Bilateral neural foraminal stenosis. C5-6: Marked degree of disc space narrowing with a spondylosis and uncovertebral arthrosis. Moderate degree of bilateral neural foraminal stenosis. C6-7: Marked degree of disc space narrowing. Spondylosis. Uncovertebral arthrosis and facet joint osteoarthritis. Bilateral neural foraminal stenosis. C7-T1: Disc space narrowing. Facet joint osteoarthritis and hypertrophy. CT/Spine Cervical without Contras IMPRESSION: DEGENERATIVE CHANGES OF THE CERVICAL SPINE. NO EVIDENCE OF SIGNIFICANT OSSEOUS CENTRAL CANAL OR NEURAL FORAMINAL STENOSIS. Reading Location: [facility]
--- NOTE | 2024-09-26 11:59 | ED.VIS.FALL ---
HPI HPI - Fall History of Present Illness Chief Complaint: Fall Narrative Narrative: Chief complaint and HPI: Close head injury with scalp laceration. 89-year-old female with past medical history of spinal stenosis and balance issues presents for evaluation after a mechanical fall. Patient states she was in a walk-in shower when she lost her balance and fell out of the shower. States she hit her head on the handle of a counter. Denies any LOC. Not on blood thinners. Was able to ambulate off the floor by herself. Denies any headache, fever, chills, shortness of breath, chest pain, abdominal pain, nausea, vomiting, numbness/tingling, dysuria, weakness, syncope, lightheadedness. Review of systems: See HPI Medications: As listed on the chart Allergies: As listed on the chart PFSH: Per chart Vital signs: As listed on the chart. Reviewed. Physical exam: Gen: A&O x3, NAD Head: Normocephalic, 1 cm left parietal scalp laceration Eyes: No sclera icterus, conjunctiva clear, PERRL, EOMI ENT: TMs clear BL, moist mucous membranes, no swelling/lacerations/blood in the mouth or the nares, No nasal septal hematoma, no facial tenderness Neck: Trachea midline, No JVD, Nontender CV: RRR, no murmurs, no chest wall TTP Resp: Lungs CTA BL, no w/r/c GI: Abd soft, non-distended, non-tender, no r/r/g Musc: Full ROM, no deformity, no spinal TTP, no erwin step-offs Skin: Warm, dry, intact Neuro: Alert, oriented, grossly intact, sensation intact, GCS 15 Psych: Cooperative, appropriate mood and affect [facility] Medical History Hyperkalemia Hypercalcemia Electrolyte abnormality Grief reaction Contusion of left hip Acute lumbar myofascial strain Osteoarthritis COVID-19 Fractured elbow Insomnia History of skin cancer of unknown type Hearing loss History of vaginal delivery Osteopenia Carpal tunnel syndrome Arthritis Home Medications ?Medication ?Instructions ?Recorded ?Last Taken ?Type cholecalciferol (vitamin D3) 25 25 mcg PO DAILY 09/19/19 Unknown History mcg (1,000 unit) capsule acetaminophen 500 mg tablet 1,000 mg PO TID PRN 06/16/23 Unknown History multivitamin with calcium carb and tab PO 07/05/23 Unknown History iron tablet denosumab 60 mg/mL subcutaneous 60 mg subcut [id number] #1 mL 09/19/23 Unknown Rx syringe (Prolia) tramadol 75 mg tablet 75 mg PO TID 07/20/24 Unknown History Allergy/AdvReac Type Severity Reaction Status Date / Time No Known Allergies Allergy Verified 09/26/24 11:25 Family History Father Cancer Brother Cancer Thyroid disorder Son Colon cancer Seizures Daughter Thyroid disorder Surgical History History of carpal tunnel release History of oral surgery History of bilateral cataract extraction Social History Smoking Status: Former smoker quit date: 02/14/73 Tobacco: How many years used: 15 alcohol intake: current alcohol intake frequency: holidays/special occasions only Alcohol type: wine substance use type: does not use what type of physical activity do you participate in: aerobics and weight training frequency: 1-2 times per week EXAM Physical Exam Const Vital Signs: 09/26/24 11:22 09/26/24 11:23 09/26/24 13:19 Temperature 97.8 F 98.2 F Temperature Source Temporal Pulse Rate 97 91 Respiratory Rate 16 16 Respiratory Effort Normal Non-Labored Respiratory Depth Normal Respiratory Pattern Normal Blood Pressure 150/64 H 146/68 H Blood Pressure Mean 92 94 Pulse Ox 82 94 Oxygen Delivery Method Room Air MDM MDM MDM Narrative Medical decision making narrative: 89-year-old female with past medical history of spinal stenosis and balance issues presents for evaluation after a mechanical fall. Patient states she was in a walk-in shower when she lost her balance and fell out of the shower. States she hit her head on the handle of a counter. Denies any LOC. Not on blood thinners. Was able to ambulate off the floor by herself. Physical exam unremarkable except for a scalp laceration. Scalp laceration will need to be repaired with gonzalo. Will obtain CT of the head and neck to assess for fracture. CT of the head and neck negative for acute traumatic injury. Laceration was repaired with gonzalo. Patient stable to discharge home. Follow-up with PCP. She confirmed understanding the plan. Laceration Repair Indication: Laceration Location: 1 cm scalp laceration Consent: Risks, benefits, and alternatives discussed with patient and consent obtained Procedure: The area was prepped and draped in the usual sterile fashion. Patient was offered local anesthesia however declined. Preferred to just have gonzalo. The wound was copiously irrigated and cleaned. 4 gonzalo were placed. Patient tolerated the procedure well without complications. Foreign Material:None Debridement: None Follow-up: Anticipatory guidance, as well as standard post-procedure care, was explained. Return precautions are given. Follow-up visit set for suture removal and evaluation of the laceration. Impression: 1. Closed head injury 2. Scalp laceration, repaired with gonzalo 3. Mechanical fall Radiography Diagnostic Testing: Clinical Impression(s) from Imaging Studies Brain CT 09/26/24 11:54 IMPRESSION: CHRONIC CHANGES. NO ACUTE FINDINGS. Reading Location: [facility] Cervical Spine CT 09/26/24 11:54 IMPRESSION: DEGENERATIVE CHANGES OF THE CERVICAL SPINE. NO EVIDENCE OF SIGNIFICANT OSSEOUS CENTRAL CANAL OR NEURAL FORAMINAL STENOSIS. Reading Location: [facility] Discharge Plan Triage Chief Complaint: Fall ED Provider: Jose L Mercer Dx/Rx/DC Orders Clinical Impression: Head injury, Laceration of scalp Instructions: ED Head Injury (Adult), ED Laceration Scalp Stitches or Gonzalo Prescriptions: No Action acetaminophen 500 mg tablet 1,000 mg PO TID PRN multivitamin-calcium carb-iron Tablet PO tramadol 75 mg tablet 75 mg PO TID cholecalciferol (vitamin D3) 25 MCG capsule 25 mcg PO DAILY Prolia 60 mg/mL syringe 60 mg subcut [id number] Qty: 1 0RF Primary Care Provider: Abhishek Foy Referrals: Abhishek Foy MD [Primary Care Provider] - 3-5 Days Activity Restrictions/Additional Instructions: Gonzalo need to be removed in 7 to 10 days. Okay to shower in 24 hours. Follow-up with primary care physician. Monitor for signs of infection. No lakes, neil, oceans, swimming pools, hot tubs until fully healed. Print Language: Iraqi Disposition Disposition: Home, Self Care Discharge Date/Time: 09/26/24 13:20
[2024-09-26 13:19] VITALS: BP 146/68; PULSE 91; RESP 16; TEMP 36.8; O2SAT 94
== END 2024-09-26 13:20 | disposition home or self-care (01) ==
PROVIDERS: Emergency Provider Surgery; PCP Internal Medicine; Visit Provider Surgery
DX: S01.01XA Laceration without foreign body of scalp, initial encounter (principal); W18.2XXA Fall in (into) shower or empty bathtub, initial encounter; Z87.891 Personal history of nicotine dependence
CPT/HCPCS: 12001; 70450; 72125; 99282

== ENCOUNTER 2024-10-02 15:30 | Outpatient (RCR) | payer MEDICARE, SELFPAY ==
--- NOTE | 2024-09-03 19:26 | HP.PTEVAL ---
Patient's Visit Information Visit Information Visit Information: STERLING VALDES is a 89 year old F referred to Physical Therapy by Dr. Minesh Maloney MD with a diagnosis of LUMBAR RADICULOPATHY. Date of Evaluation: 09/03/24 Physical Therapist: Susy Murphy PT, Cert MDT Visit Plan Frequency: 2x /Week Duration: 4-6 Weeks Plan: 2X'S A WK X 5 WKS *FALL RISK - USE GAIT BELT* *GAIT AND BALANCE TRAINING FOR SAFETY. EDUCATION TO REDUCE RISK OF FALLING AND EDUCATE ON BENEFITS OF WALKER OR ROLLATOR USE TO REDUCE RISK OF FALLS AND PAIN REDUCTION. WRITTEN HEP INSTRUCTION* CONSIDER US FOR BACK PAIN RELIEF. Neutral Spine Core Stability Exercises and Marvin LE Hip Flexor, Hamstring and Calf Stretching to help reduce stress to the Lumbar Spine with all Daily Activities. Marvin LE Strengthening. Instruction in Proper Posture Control, Body Mechanics, and Appropriate Activity Modifications. HEP Instruction Subjective Subjective: Subjective: Work/Leisure: RETIRED. LIVING AT HOME ALONE BUT STATES SHE IS ON WAIT LIST FOR [facility] He[facility]. Present symptoms: MARVIN LOW BACK PAIN AND L THIGH PAIN. PATIENT REPORTS SHE HAS DEVELOPED SOME NUMBNESS IN BOTH FEET SOMETIME OVER THE PAST YEAR. Present since: PATIENT REPORTS CHRONIC PAIN WITH WORSENING OF PAIN IN THE LAST 2-3 WEEKS. Pain Scale: LBP: WORST 7/10, LEAST 0/10. L THIGH: WORST 7/10, LEAST 3/10 Currently: LBP: 0/10, L THIGH 3/10 Is it getting better, worse or staying the same: STAYING THE SAME Commenced as a result of: PATIENT REPORTS RECEIVING AN GEORGIE 06/18/24 FOR L HIP PAIN AND H/O GEORGIE'S APPROX EVERY 3 MO'S WITH TEMP. RELIEF. PLANNING ANOTHER INJECTION 09/18/24. SHE STATES HER LBP STARTED ABOUT A AFTER A FALL ON BUTTOCKS AT HOME IN BEDROOM - LOST BALANCE AT 4:30 AM 07/07/22. Worse: RISING FROM SITTING, MAKING A BED, WALKING, STEPS, BENDING. Better: TYLENOL, IBUPROFEN, TRAMADOL, SITTING, LYING. Disturbed sleep: NO. STATES NEEDING TO GO TO THE BATHROOM IS WHAT WAKES HER UP AT NIGHT. Previous history/Previous treatment: PREDNISONE, WATER AND LAND PT - NO BIG EFFECT AND PATIENT REPORTS SHE DIDN'T FOLLOW THROUGH. PATIENT REPORTS SHE ISN'T CRAZY ABOUT THE WATER AND THOUGHT THE AT WAS A LOT OF FUSS FOR NOT A LOT OF BENEFIT. GEORGIE'S. PATIENT REPORTS SHE HAS SEEN A Mortar Mixer Operator FOR HER LEG LENGTH discrepancy AND HAS A LIFT FOR HER SHOE - USES IN HER TENNIS SHOE OUT OF HOME ONLY. HAD EPISODE OF CARE FOR THIS HERE AT [facility] IN PT AND REPORTS SOME BENEFIT BUT AGAIN DID NOT FOLLOW THROUGH WITH THE EX'S RECOMMENDED. Coughing/sneezing/straining: POSITIVE FOR INCREASED PAIN Gait: HAS BEEN USING A CANE A CANE SINCE FALLING JUNE 2022. STATES SHE HASN'T FALLEN AGAIN BUT IS AFRAID OF FALLING. Bowel or Bladder Dysfunction: URINARY LEAKING. NO SUDDEN LOSS OF BOWEL OR BLADDER. Accidents: NO Unexplained weight loss: NO Imaging: NONE RECENT. PMH/Recent major surgery: OSTEOPENIA. OTHER: PATIENT REPORTS SHE HASN'T BEEN PAINFREE SINCE SHE FELL IN JUNE OF 2022. FOLLOW UP PENDING WITH DR. MALONEY Tuesday09/10/24 AND STATES SHE IS HOPING TO GET ANOTHER INJECTION SEP 18 2024. Objective Objective: Sitting/Standing Posture: POOR. R LATERAL SHIFT. L ILIAC CREST HIGHER THAN R. STANDING WITH R KNEE BENT AND LEANING TO THE R. SCOLIOTIC APPEARING. Active Correction of posture: NE ON BACK OR LLE PAIN. MINIMALLY ABLE TO CORRECT AND DOES NOT MAINTAIN. Other Observations: INDEP GAIT INTO PT WITH ST CANE LEANING TO THE RIGHT WITH DECREASED DWAYNE. LIGHT UE ASSIST NEEDED TO TRANSFER FROM SIT TO STAND SAFELY. UNABLE TO SLS ON LLE WITHOUT UE FOR MORE THAN A SECOND TO STEP WITH THROUGH WITH R LE DUGING GAIT WITHOUT UE ASSIST. ABLE TO SLS ON R LE X 5+ SEC WITHOUT UE ASSIST. SLS LLE INCREASES C/O LB AND L HIP PAIN. PATIENT OBSERVED ATTEMPTING TO WALK IN TREATMENT ROOM WITHOUT CANE AND THIS PT ADVISED AGAINST IT. PATIENT ABLE TO TRANSFER INDEP'LY FROM SIT TO STAND AND REVERSE WITHOUT UE ASSIST BUT NOT SAFE IN DOING SO AND THIS PT ADVISED AGAINST THIS WELL. Sensory deficit: MARVIN LE LIGHT TOUCH SENSATION GROSSLY INTACT AND SYMMETRICAL ROM deficit: VERY TIGHT MARVIN HIP IR L>R. L THIGH ATROPHY. DECREASED MARVIN KNEE ROM. Motor deficit: R HIP 4/5, KNEE 4/5, ANKLE 5/5. L HIP 3+/5, KNEE 4-/5, ANKLE 5/5. Dural Signs: NEGATIVE MARVIN LE'S. Lumbar mvmt loss: flex - MIN - INCREASES - W ext - ALAINA - INCREASES - NW R SG - ALAINA - NE L SG - ALAINA - INCREASES - W PAIN IN L THIGH RETURNED TO BASELINE AFTER A FEW MINUTES IN SITTING. Core strength: POOR Palpation: NO ACUTE LUMBAR, HIP OR THIGH TENDERNESS. TUG TIME: 24.[address] CANE AND SUPERVISION. OTHER: EDUCATED PATIENT THAT SHE IS A HIGH FALL RISK AND THAT WALKER WOULD GIVE HER MORE SUPPORT THAN CANE. SHE STATES SHE IS AWARE. SHE REPORTS SHE HAS A WALKER WITH WHEELS BUT DOESN'T LIKE IT BECAUSE IT GETS IN THE WAY. THIS PT RECOMMENDED PATIENT USE THE CANE AT ALL TIMES IF NOT WILLING TO USE THE WALKER AND RECOMMENDED USING HANDS FROM SIT TO STAND AND REVERSE TRANSFERS FOR SAFETY. PATIENT RETURN DEMO'D UNDERSTANDING. Balance/Special Test Scores Oswestry Low Back Score: 29 Goals Goal 1:: DECREASE C/O L THIGH PAIN BY AT LEAST 50% TO EASE ADL'S Goal Time Frame: 4-6 Weeks Goal 2:: IMPROVE PERSONAL CARE, WALKING, SITTING, STAIR CLIMBING, BENDING, BED MAKING, AND RISING FROM SITTING FUNCTION. Goal Time Frame: 4-6 Weeks Goal 3:: INSTRUCT IN PROPHYLAXIS Goal Time Frame: 4-6 Weeks Rehabilitation Potential Physical Therapy Diagnosis: CORE AND LE WEAKNESS AND STIFFNESS WITH DIFFICULTY WALKING AND C/O BACK AND LLE PAIN LIMITING ADL'S. FALL RISK. PHYSICAL THERAPY HAS HELPED PATIENT IN THE PAST AND SHE WANTS TO TRY IT AGAIN. Rehabilitation Potential: Questionable Anticipated Interventions Patient/Client Instruction: Educate patient on: Condition, Plan of Care and Risk Factors For the Purpose of:: To improve self management Therapeutic Exercise to Include: Strength training, Balance training, Body mechanics, Postural training, Flexibilty training, Gait and locomotor training, Neuromotor development and Dynamic Lumbar Stabilization For the Purpose of:: To decrease pain, To improve muscle performance and motor function, To improve ability to perform ADL's, To increase tolerance to activity/condition/position, To improve ability of physical actions for home/community/work/leisure, To improve gait and locomotor functions, To increase flexibility/ROM, To improve balance, To improve safety with gait and To improve self management Cryotherapy (ice pack, ice massage): Yes Thermo therapy (hot pack): Yes Ultrasound (thermal/non thermal): Yes For the Purpose of:: To decrease pain, To decrease swelling/inflammation and To improve nutrient delivery to tissue Text: Thank you for the opportunity to evaluate your patient. For Medicare and Medicare HMO plans, please review the plan of care and approve it. It will need to be FAXED BACK to us at [phone] for Medicare purposes. For Medicare only, by signing this I certify the plan of care. Please let me know if there are questions or concerns regarding this plan of care. Physician Signature: Date:
== END 2024-10-02 19:00 | disposition home or self-care (01) ==
LOC: PT 15:30
PROVIDERS: PCP Internal Medicine; Referring Provider Anesthesiology; Visit Provider Anesthesiology
DX: M54.16 Radiculopathy, lumbar region (principal)
CPT/HCPCS: 97110; 97162; 97530

== ENCOUNTER → 2024-10-10 | Outpatient (CLI) | payer MEDICARE, SELFPAY ==
--- NOTE | 2024-10-10 11:17 | RAD_ITS ---
EXAM: XR Lumbosacral Spine, 4 or 5 Views CLINICAL INDICATION: LOW BACK PAIN WITH RADICULOPATHY TECHNIQUE: Frontal, lateral and bilateral oblique views of the lumbar spine. COMPARISON: XR Lumbosacral Spine dated 10/07/2023 FINDINGS: VERTEBRAE: Grade 1 anterior spondylolisthesis of L4 over L5. Multilevel endplate degenerative changes and disc degeneration of the visualized spine. No acute fracture. SACRUM/COCCYX: Unremarkable as visualized. No acute fracture. DISC SPACES: See above. SOFT TISSUES: Unremarkable. RAD/L/S Spine Min 4 Views IMPRESSION: 1. No acute fracture. 2. Degenerative changes of the spine as above. 3. If symptoms persist, further evaluation with MRI is recommended. Reading Location: [id number]
--- NOTE | 2024-10-10 11:17 | RAD_ITS ---
EXAM: XR Right Hip With Pelvis When Performed, 2 or 3 Views CLINICAL INDICATION: RIGHT LOWER EXTREMITY WEAKNESS TECHNIQUE: Two or three views of the right hip with pelvis when performed. COMPARISON: XR Hips Pelvis Unilateral or Bi dated 09/13/2022 FINDINGS: BONES/JOINTS: Severe degenerative changes of the right hip joint. No acute fracture. No dislocation. SOFT TISSUES: Unremarkable. RAD/HIP, UNI W/ Pelvis 2-3 Views IMPRESSION: 1. Degenerative changes as above. 2. No significant change from the prior exam. Reading Location: [id number]
--- NOTE | 2024-10-10 11:17 | RAD_ITS ---
PROCEDURE: KNEE 3 VIEWS 10/10/2024 REASON FOR EXAM: RIGHT KNEE PAIN TECHNIQUE: KNEE 3 VIEWS COMPARISON: None. FINDINGS: There is no evidence of fracture or dislocation. There is no knee joint effusion. There is moderate arthritis of the patellofemoral joint and the medial and lateral joint space compartments of the knee. There is chondrocalcinosis of the medial and lateral menisci. There are multiple osteochondral fragments within the knee joint. RAD/Knee 3 Views IMPRESSION: 1. Moderate tricompartment arthritis without knee joint effusion. 2. Chondrocalcinosis consistent with CPPD. 3. Multiple osteochondral fragments within the knee. Reading Location: [id number]
== END | disposition home or self-care (01) ==
LOC: RAD 11:15
PROVIDERS: PCP Internal Medicine; Referring Provider Internal Medicine; Visit Provider Internal Medicine
DX: M54.16 Radiculopathy, lumbar region (principal); M51.362 Other intervertebral disc degeneration, lumbar region with discogenic back pain and lower extremity pain; M25.561 Pain in right knee; M19.90 Unspecified osteoarthritis, unspecified site
CPT/HCPCS: 72110; 73502; 73562

== ENCOUNTER → 2024-12-05 | Outpatient (CLI) | payer MEDICARE, SELFPAY ==
--- NOTE | 2024-12-05 13:18 | MRI_ITS ---
PROCEDURE: SPINE LUMBAR (ROUTINE) 12/05/2024 REASON FOR EXAM: LUMBAR STENOSIS W/ CLAUDICATION TECHNIQUE: Procedure Code: MRISPL Modality: MR Procedure: SPINE LUMBAR (ROUTINE) COMPARISON: Lumbar spine x-ray 10/10/2024. FINDINGS: Vertebrae: Preserved in height and signal. Alignment: Retrolisthesis L1 on L2 by 5 mm. Anterolisthesis L4-L5 by 2 mm. Conus Medullaris: Unremarkable. T12-L1: Disc desiccation. Disc bulge. Facet joint arthropathy. Moderate canal stenosis. Severe bilateral foramina stenosis. L1-2: Disc desiccation. Disc bulge. Right subarticular and foraminal disc protrusion measures 4 mm. Severe bilateral foramina stenosis. Severe canal stenosis. L2-3: Disc desiccation. Disc bulge. Facet joint arthropathy. Ligamentum flavum hypertrophy. Severe right and mild left foramina stenosis. Severe canal stenosis. L3-4: Disc desiccation. Disc bulge. Facet joint arthropathy. Ligamentum flavum hypertrophy. Severe bilateral foramina stenosis. Severe canal stenosis. L4-5: Disc desiccation uncovered disc bulge. Facet joint arthropathy with fluid effusion. Severe bilateral foramina stenosis. Severe canal stenosis and compression upon the spinal cord nerves. L5-S1: Disc desiccation. Disc bulge. Facet joint arthropathy. Moderate bilateral foramina stenosis. No canal stenosis. Sacrum: Unremarkable. MRI/Spine Lumbar (Routine) IMPRESSION: Severe multilevel degenerate changes with compression upon the cauda equina ner ves as detailed. Reading Location: [facility]
--- NOTE | 2024-12-05 13:18 | MRI_ITS ---
PROCEDURE: SPINE LUMBAR (ROUTINE) 12/05/2024 REASON FOR EXAM: LUMBAR STENOSIS W/ CLAUDICATION TECHNIQUE: Procedure Code: MRISPL Modality: MR Procedure: SPINE LUMBAR (ROUTINE) COMPARISON: Lumbar spine x-ray 10/10/2024. FINDINGS: Vertebrae: Preserved in height and signal. Alignment: Retrolisthesis L1 on L2 by 5 mm. Anterolisthesis L4-L5 by 2 mm. Conus Medullaris: Unremarkable. T12-L1: Disc desiccation. Disc bulge. Facet joint arthropathy. Moderate canal stenosis. Severe bilateral foramina stenosis. L1-2: Disc desiccation. Disc bulge. Right subarticular and foraminal disc protrusion measures 4 mm. Severe bilateral foramina stenosis. Severe canal stenosis. L2-3: Disc desiccation. Disc bulge. Facet joint arthropathy. Ligamentum flavum hypertrophy. Severe right and mild left foramina stenosis. Severe canal stenosis. L3-4: Disc desiccation. Disc bulge. Facet joint arthropathy. Ligamentum flavum hypertrophy. Severe bilateral foramina stenosis. Severe canal stenosis. L4-5: Disc desiccation uncovered disc bulge. Facet joint arthropathy with fluid effusion. Severe bilateral foramina stenosis. Severe canal stenosis and compression upon the spinal cord nerves. L5-S1: Disc desiccation. Disc bulge. Facet joint arthropathy. Moderate bilateral foramina stenosis. No canal stenosis. Sacrum: Unremarkable. MRI/Spine Lumbar (Routine) IMPRESSION: Severe multilevel degenerate changes with compression upon the cauda equina ner ves as detailed. Reading Location: [facility]
== END | disposition home or self-care (01) ==
LOC: MRI 12:47
PROVIDERS: PCP Internal Medicine; Referring Provider Anesthesiology; Visit Provider Anesthesiology
DX: M48.062 Spinal stenosis, lumbar region with neurogenic claudication (principal)
CPT/HCPCS: 72148